=== PATIENT | female | born 1985 | race Caucasian/White ===

== ENCOUNTER → 2019-10-30 10:30 | Outpatient (BNVA) | payer BC, SELFPAY | PROVIDERS: Family Provider Family Medicine; PCP Family Medicine; Visit Provider Obstetrics & Gynecology | DX: R30.0 Dysuria (principal) | CPT/HCPCS: 80053; 87077; 87086; 87186 ==

== ENCOUNTER 2020-06-04 14:28 | Outpatient (CLI) | payer OTHER, SELFPAY ==
--- NOTE | 2020-06-04 14:37 | XRR_ITS ---
PROCEDURE INFORMATION: Exam: XR Left Knee Exam date and time: 06/04/2020 2:49 PM Age: 34 years old Clinical indication: Left; Prior surgery; Surgery type: Acl; Patient HX: Lt knee pain after doing squats; Additional info: L knee pain TECHNIQUE: Imaging protocol: XR Left knee. Views: 3 views. COMPARISON: No relevant prior studies available. FINDINGS: Bones/joints: Normal. Soft tissues: Normal. XR/XR knee LT 3V* [id number] IMPRESSION: No acute findings.
== END 2020-06-04 14:29 | disposition home or self-care (01) ==
LOC: RAD 14:35
PROVIDERS: Family Provider Family Medicine; PCP Family Medicine; Visit Provider Family Medicine
DX: M25.562 Pain in left knee (principal)
CPT/HCPCS: 73562

== ENCOUNTER → 2021-04-01 16:06 | Outpatient (BNVA) | payer OTHER, BC, SELFPAY | PROVIDERS: Family Provider Family Medicine; PCP Family Medicine; Visit Provider Nurse Practitioner Women's Health | DX: Z01.419 Encounter for gynecological examination (general) (routine) without abnormal findings (principal) | CPT/HCPCS: 87624 ==

== ENCOUNTER 2021-06-02 13:14 | Outpatient (CLI) | payer OTHER, BC, SELFPAY ==
[2021-06-02 13:20] VITALS: BP 125/85; PULSE 99; RESP 17; TEMP 36.6; O2SAT 99
[2021-06-02 13:45] VITALS: BMI 32.4
[2021-06-02 14:18] VITALS: BP 113/81; PULSE 74; RESP 20; TEMP 36.7; O2SAT 97
[2021-06-02 15:18] VITALS: BP 139/90; PULSE 85; RESP 18; TEMP 36.2; O2SAT 98
== END 2021-06-02 13:15 | disposition home or self-care (01) ==
LOC: OPS 13:17
PROVIDERS: PCP Family Medicine; Visit Provider Internal Medicine
DX: U07.1 COVID-19 (principal)
CPT/HCPCS: 96365

== ENCOUNTER 2022-08-29 09:09 | Outpatient (CLI) | payer BC, SELFPAY ==
[2022-08-29 09:46] LABS: Specific Gravity, Urine 1.005 (1.005-1.030); Urine Appearance Hazy (CLEAR); Urine Color Yellow (Yellow); pH Urine 6.5 (5-7)
[2022-08-29 09:47] LABS: Blood Urine Neg (Negative); Glucose Urine UA Norm (Normal); Ketones Urine Negative (Negative); Protein Urine Neg (Negative)
[2022-08-29 09:48] LABS: Bilirubin Urine 1+ (Negative); Leukocyte Esterase Urine Negative (Negative); Urobilinogen Urine 1 mg/dL (Negative)
[2022-08-29 09:49] LABS: Add Urine Microscopic? YES; Bacteria Urine 1+ /hpf; Mucus Urine TRACE /hpf; RBC Urine 0-4 /hpf (0-2); Squamous Epithelial Cell Urine 25-40 /hpf (0-5)
[2022-08-29 09:50] LABS: Add Urine Culture? No; Other Casts Urine WBC CAST /lpf
== END 2022-08-29 09:10 | disposition home or self-care (01) ==
PROVIDERS: PCP Family Medicine; Visit Provider Family Medicine
DX: R30.0 Dysuria (principal)
CPT/HCPCS: 81001; 87086

== ENCOUNTER → 2023-02-09 14:39 | Outpatient (BNVA) | payer BC, SELFPAY | PROVIDERS: PCP Family Medicine; Visit Provider Family Medicine | DX: R30.0 Dysuria (principal); Z34.90 Encounter for supervision of normal pregnancy, unspecified, unspecified trimester; I10 Essential (primary) hypertension | CPT/HCPCS: 80307; 81000; 81025; 84144; 84156; 84443; 84702; 85025; 86592; 86762; 86803; 86850; 86900; 87086; 87340; 87491; 87591; 87624; 87806 ==

== ENCOUNTER → 2023-02-12 10:40 | Outpatient (BNVA) | payer BC, SELFPAY | PROVIDERS: PCP Family Medicine; Visit Provider Family Medicine | DX: I10 Essential (primary) hypertension (principal); Z34.00 Encounter for supervision of normal first pregnancy, unspecified trimester | CPT/HCPCS: 84156 ==

== ENCOUNTER 2023-02-17 17:48 | Outpatient (CLI) | payer BC, SELFPAY ==
[2023-02-17 18:02] LABS: Add Urine Microscopic? NO; Charge for UA Resulting for Rev
[2023-02-17 18:09] LABS: Bilirubin Urine Neg (Negative); Blood Urine Neg (Negative); Glucose Urine UA Norm (Normal); Ketones Urine Negative (Negative); Leukocyte Esterase Urine Negative (Negative); Nitrate Urine Negative (Negative); Protein Urine Neg (Negative); Specific Gravity, Urine 1.015 (1.005-1.030); Urine Appearance Clear (CLEAR); Urine Color Yellow (Yellow); Urobilinogen Urine Norm (Negative); pH Urine 7 (5-7)
== END 2023-02-17 17:49 | disposition home or self-care (01) ==
LOC: LAB 17:49
PROVIDERS: PCP Family Medicine; Visit Provider Family Medicine
DX: R30.0 Dysuria (principal)
CPT/HCPCS: 81003; 87086

== ENCOUNTER 2023-02-19 15:22 | Outpatient (CLI) | payer BC, SELFPAY ==
--- NOTE | 2023-02-19 15:45 | US_ITS ---
WS: [id number] EARLY OBSTETRICAL ULTRASOUND (<14 WEEKS). HISTORY: Dating US - 1-2 weeks from now COMPARISON: None available. Single intrauterine gestational sac is identified. Cardiac activity at 185 BPM. [place]-rump length karina sures 2.0 cm which corresponds to a gestation of 8w4d. Normal-appearing yolk sac and amnion demonstra jose. No subchorionic hemorrhage. No free fluid. Complex nabothian cyst at the cervix. Normal size ovaries with no mass. There is a large hypoechoic mass inseparable from the LEFT lateral uterus. This mass does appear sepa rate from the ovary. This mass is round and hypoechoic with mild increased vascularity. There is only a small amount of shadowing present. Mass measures 7.6 x 7.0 x 8.3 cm. Probably representing a fibro id. No prior imaging studies to confirm this finding. This mass is displacing the gestational sac to the RIGHT. IMPRESSION: 1. Single intrauterine gestation of 8 weeks 4 days with an EDC of 2. Normal heart rate. 3. Solid mass in the LEFT adnexa inseparable from the uterus. Mass measures 7.6 x 7.0 x 8.3 cm and d isplaced the uterus and gestational sac to the RIGHT of midline. This is probably a fibroid. This adalgisa l need to be further evaluated to ensure no continued enlargement during and does not imped e with the growth of the fetus
== END 2023-02-19 15:23 | disposition home or self-care (01) ==
PROVIDERS: PCP Family Medicine; Visit Provider Family Medicine
DX: Z34.91 Encounter for supervision of normal pregnancy, unspecified, first trimester (principal); Z3A.08 8 weeks gestation of pregnancy
CPT/HCPCS: 76801; 76817

== ENCOUNTER 2023-03-15 17:31 | Outpatient (CLI) | payer BC, SELFPAY ==
[2023-03-15 18:47] LABS: Progesterone 10.71 ng/mL
== END 2023-03-15 17:32 | disposition home or self-care (01) ==
PROVIDERS: PCP Family Medicine; Visit Provider Family Medicine
DX: N93.9 Abnormal uterine and vaginal bleeding, unspecified (principal); Z34.00 Encounter for supervision of normal first pregnancy, unspecified trimester
CPT/HCPCS: 36415; 84144; 84702

== ENCOUNTER 2023-03-16 10:09 | Outpatient (CLI) | payer BC, SELFPAY ==
--- NOTE | 2023-03-16 10:45 | US_ITS ---
WS: [id number] EARLY OBSTETRICAL ULTRASOUND (<14 WEEKS). HISTORY: Absent FHT's with vaginal bleeding COMPARISON: 02/19/2023 Single intrauterine gestational sac is identified. [place]-rump length measures 1.9 cm which correspond s to a gestation of 8 weeks and 4 days. There has been no increase in size of the embryo since the pr ior study of 02/19/2023. No cardiac activity is identified on today's examination. The gestational sac is slightly elongated and extending towards the cervical canal. Again noted is the large mass in the LEFT pelvis distorting the gestational sac. Mass measures 5.7 x 5.5 and most consistent with a fibroid. IMPRESSION: 1. Embryonic demise. No cardiac activity identified. 2. No embryonic growth since 02/19/2023. Estimated age 8 weeks and 4 days. 3. Patient has a known large fibroid which is distorting the gestational sac. Notified Gómez Dixon MD at 03/16/2023 11:14 AM. Notified by freight representative at the time of exam.
== END 2023-03-16 10:10 | disposition home or self-care (01) ==
PROVIDERS: PCP Family Medicine; Visit Provider Family Medicine
DX: O02.1 Missed abortion (principal); O34.11 Maternal care for benign tumor of corpus uteri, first trimester; D25.9 Leiomyoma of uterus, unspecified; Z3A.08 8 weeks gestation of pregnancy
CPT/HCPCS: 76801; 76817

== ENCOUNTER 2023-03-25 16:38 | Emergency (ER) | payer BC, SELFPAY ==
[2023-03-25 16:41] VITALS: BP 148/98; PULSE 82; RESP 17; TEMP 36.7; O2SAT 100
[2023-03-25 17:26] LABS: Basophils % 0.4 %; Eosinophils # 0.1 10^3/uL (0.0-0.8); Eosinophils % 0.7 %; Hematocrit 35.1 % (36-47); Lymphocytes # 2.5 10^3/uL (0.8-4.8); Lymphocytes % 33.5 %; Mean Corpuscular HGB Conc 33.3 g/dL (30-55); Mean Corpuscular Hemoglobin 29.8 pg (27-33); Mean Corpuscular Volume 89.5 fl (85-98); Monocytes # 0.4 10^3/uL (0.2-0.9); Neutrophils # 4.46 10^3/uL (1.8-7.7); Neutrophils % 59.7 %; Nucleated Red Blood Cells % 0 %; Platelet Count 339 10^3/cmm (157-399); Red Blood Count 3.92 10^6/uL (3.85-5.65); Red Cell Distribution Width 14.5 % (12.1-15.1); White Blood Count 7.46 10^3/uL (3.29-11.43)
--- NOTE | 2023-03-25 17:37 | USR_ITS ---
PROCEDURE INFORMATION: Exam: US First Trimester, Transabdominal and US , Transvaginal Exam date and time: 03/25/2023 6:08 PM Age: 37 years old Clinical indication: Lmp or gestational age (in weeks): 13w 4d; Antepartum complications; Bleeding; ; Patient HX: one, para zero presenting with heavy vaginal bleed x 6 days, positive serum hcg is low for gestational age. She states that her ob physician had diagnosed her with one fibroid. I am seeing 3 today, one of which is pedunculated. ; Additional info: Miscarriage TECHNIQUE: Imaging protocol: Real-time transabdominal obstetrical ultrasound of the maternal pelvis and a first trimester , less than 14 weeks 0 days, with image documentation. Transvaginal imaging was used for better evaluation of the fetus, adnexa, and/or cervix. COMPARISON: US OB <=14 wk fetus w transvag 03/16/2023 10:46 AM FINDINGS: Gestation: No intrauterine identified. Uterus: Uterus measures 10.3 x 8.9 x 6.5 cm. There is a 5.6 x 3.8 cm intramural fibroid, and 8.1 x 2.9 x 1.8 intramural fibroid and a 4.4 x 4.0 x 3.5 cm pedunculated fibroid. The endometrium measures 8 mm thickness. Cervix: Unremarkable. Right ovary/adnexa: Right ovary measures 2.8 x 2.4 x 1.8 cm with a volume of 6.5 mL. The left ovary measures 2.8 x 2.7 x 2.0 cm with a volume 8.0 mL. Left ovary/adnexa: See Right ovary/adnexa finding. Intraperitoneal space: No free fluid in the pelvis. US/US OB <= 14 weeks fetus [id number] IMPRESSION: 1. No intrauterine identified. 2. The presence or absence of retained products of conception can not be determined.
[2023-03-25 17:54] LABS: Alanine Aminotransferase 23 U/L (0-33); Albumin Level 4.5 g/dL (3.5-5.2); Alkaline Phosphatase 80 U/L (35-105); Anion Gap 14.2 (5-19); Aspartate Amino Transferase 27 U/L (0-32); Blood Urea Nitrogen 11 mg/dL (6-20); Calcium 9.3 mg/dL (8.5-10.5); Carbon Dioxide 25 mmol/L (22-29); Chloride 105 mmol/L (98-107); Creatinine Clr Calc Pharmacy 145.6475; Globulin 2.8 g/dL (1.3-4.6); Glomerular Filtration Rate 112.5 mL/min (90-130); Glucose 86 mg/dL (65-115); Osmolality Calculated 289 mOsm/kg (285-295); Potassium 4.2 mmol/L (3.5-5.1); Sodium 140 mmol/L (136-145); Total Bilirubin 0.3 mg/dL (0.15-1.2); Total Protein 7.3 g/dL (6.6-8.7)
[2023-03-25 17:59] VITALS: BP 133/93; PULSE 73; RESP 18; O2SAT 100
--- NOTE | 2023-03-25 18:11 | W.ED.PREGNAN ---
HPI - General: Chief complaint: OB/Uterine Contractions Stated complaint: Destiny sent for incomplete miscarriage Time Seen by Provider: 03/25/23 17:07 Source: patient Mode of arrival: ambulatory Limitations: no limitations History of Present Illness: 37-year-old female states she is 12 weeks states she had a miscarriage on Wednesday states today she had some increased bleeding with cramping. She denies any massive bleeding or lightheadedness. She has had some slight abdominal cramping. Associated symptoms: Deny abdominal pain, headache(s), nausea or vomiting Review of Systems Const: Denies: fever(s), chills, body aches or change in appetite ENMT: Denies: throat pain or dental pain Card: Denies: chest pain Resp: Denies: dyspnea GI: Denies: abdominal pain, nausea, vomiting or diarrhea : Reports: vaginal bleeding Musc: Denies: neck pain or back pain Skin/Breast: Denies: rash Neuro: Denies: headache(s) PFSH ED PFSH: Medical History Chronic GERD Hypertension No pertinent past medical history neghx: dm,thyroid,dvt/pe PCP: Dr. Dxion Surgical History Hx of cholecystectomy (~2005) Hx of removal of cyst (~2011) L of top of foot Hx of total knee arthroplasty L knee x2 06/2020 Family History Father Hypertension Heart disease Diabetes Mother Hypertension Diabetes Brother Hypertension Grandfather Heart disease Maternal Family/Other Diabetes Paternal Aunt Sister Thyroid disease Denies family history of Colon cancer Ovarian cancer Hypercholesteremia Breast cancer Uterine cancer Stroke Social History Smoking and tobacco/nicotine status: never used tobacco/nicotine Alcohol intake: never Substance/Drug Use: never Current occupation: [employer] Physical Exam Const: COMMON NORMALS: no acute distress, patient oriented x3 and healthy appearing HENMT: COMMON NORMALS: normocephalic and atraumatic HEAD & SCALP: normocephalic and atraumatic Eye: COMMON NORMALS: Equal, round and reactive pupils present and EOMs intact bilaterally PUPIL: Yes Equal, round and reactive pupils present Neck/C-Spine: COMMON NORMALS: full ROM Chest: COMMONS NORMALS: normal inspection of the chest Resp: COMMON NORMALS: normal respiratory effort Cardio: COMMON NORMALS: regular rate, regular rhythm and No murmurs present (Cardio) RATE: regular rate RHYTHM: regular rhythm GI: INSPECTION: Yes normal to inspection Extremity: COMMON NORMALS: normal to inspection and full ROM Neuro: COMMON NORMALS: patient oriented x3, moves all extremities and no focal motor deficits Psych: COMMON NORMALS: mental status grossly normal, Normal thought process present and cooperative THOUGHT PROCESS: Normal thought process present Skin: COMMON NORMALS: no rashes or lesions noted and no wounds GENERAL SKIN EXAM: no rashes or lesions noted Course Vital Signs: Vital signs: Vital Signs Temperature 98.1 F 03/25/23 16:41 Pulse Rate 76 03/25/23 18:54 Respiratory Rate 18 03/25/23 18:54 Blood Pressure 149/100 03/25/23 18:54 Pulse Oximetry 99 03/25/23 18:54 Oxygen Delivery Me thod Room Air 03/25/23 18:54 MDM - OB/Uterine Contractions Medical Decision Making Patient presents here with miscarriage patient was seen by Dr. Tavarez in the ER he did a pelvic exam he states he had evacuated clots or bleeding and stopped he is comfortable with her going home and following up with him outpatient she does feel improved here as well hemoglobin is normal I did inform her if her bleeding worsens she is to return she understands agrees to plan. Medical Records I reviewed the patient's medical records. Lab Data I reviewed the patient's lab results. 03/25/23 17:18 03/25/23 17:18 Laboratory Results WBC 7.46 10^3/uL (3.29-11.43) 03/25/23 17:18 RBC 3.92 10^6/uL (3.85-5.65) 03/25/23 17:18 Hgb 11.70 g/dL (11.27-16.99) 03/25/23 17:18 Hct 35.1 % (36-47) L 03/25/23 17:18 MCV 89.5 fl (85-98) 03/25/23 17:18 MCH 29.8 pg (27-33) 03/25/23 17:18 MCHC 33.3 g/dL (30-55) 03/25/23 17:18 RDW 14.5 % (12.1-15.1) 03/25/23 17:18 Plt Count 339 10^3/cmm (157-399) 03/25/23 17:18 MPV 10.0 fL (7.4-10.4) 03/25/23 17:18 Neut % (Auto) 59.7 % 03/25/23 17:18 Lymph % (Auto) 33.5 % 03/25/23 17:18 [place] % (Auto) 5.0 % 03/25/23 17:18 Eos % (Auto) 0.7 % 03/25/23 17:18 Baso % (Auto) 0.4 % 03/25/23 17:18 Neut # (Auto) 4.46 10^3/uL (1.8-7.7) 03/25/23 17:18 Lymph # (Auto) 2.5 10^3/uL (0.8-4.8) 03/25/23 17:18 [place] # (Auto) 0.4 10^3/uL (0.2-0.9) 03/25/23 17:18 Eos # (Auto) 0.1 10^3/uL (0.0-0.8) 03/25/23 17:18 Baso # (Auto) 0.0 10^3/uL (0.0-0.1) 03/25/23 17:18 Nucleated RBC % (auto) 0 % 03/25/23 17:18 Nucleated RBCs # 0.0 /100WBC 03/25/23 17:18 Sodium 140 mmol/L (136-145) 03/25/23 17:18 Potassium 4.2 mmol/L (3.5-5.1) 03/25/23 17:18 Chloride 105 mmol/L (98-107) 03/25/23 17:18 Carbon Dioxide 25 mmol/L (22-29) 03/25/23 17:18 Anion Gap 14.2 (5-19) 03/25/23 17:18 BUN 11 mg/dL (6-20) 03/25/23 17:18 Creatinine 0.6 mg/dL (0.5-0.9) 03/25/23 17:18 GFR Calculation 112.5 mL/min (90-130) 03/25/23 17:18 Glucose 86 mg/dL (65-115) 03/25/23 17:18 Calculated Osmolality 289 mOsm/kg (285-295) 03/25/23 17:18 Calcium 9.3 mg/dL (8.5-10.5) 03/25/23 17:18 Total Bilirubin 0.3 mg/dL (0.15-1.2) 03/25/23 17:18 AST 27 U/L (0-32) 03/25/23 17:18 ALT 23 U/L (0-33) 03/25/23 17:18 Alkaline Phosphatase 80 U/L (35-105) 03/25/23 17:18 Total Protein 7.3 g/dL (6.6-8.7) 03/25/23 17:18 Albumin 4.5 g/dL (3.5-5.2) 03/25/23 17:18 Globulin 2.8 g/dL (1.3-4.6) 03/25/23 17:18 Ser , Semi-Qnt 550.60 mIU/mL 03/25/23 17:18 All radiology interpretation(s) finalized by discharge Discharge Plan Discharge Patient Disposition: Home Clinical Impression: Spontaneous miscarriage Condition: Stable Prescriptions: No Action cholecalciferol (vitamin D3) 25 mcg (1,000 unit) capsule 50 mcg PO DAILY ascorbic acid (vitamin C) 1,000 mg tablet 500 mg PO BID prenat.vits,bjorn,hbo-otqq-oeovv Tablet 1 tab PO DAILY doxylamine succinate 25 mg tablet See Rx Instructions .Route .COMPLEX PRN (Reason: allergy symptoms) Qty: 30 6RF Rx Instructions: Take 1 tab by mouth each evening and 1/2 tab in the am as needed for nausea PRN; pyridoxine (vitamin B6) 100 mg tablet 100 mg PO BID PRN (Reason: Nausea) Qty: 60 3RF labetalol 100 mg tablet See Rx Instructions .ROUTE .COMPLEX Qty: 180 1RF Dose Instruction: TAKE 1 TABLET BY MOUTH TWICE A DAY Rx Instructions: TAKE 1 TABLET BY MOUTH TWICE A DAY Discharge Orders: Discharge ED (Routine); Ordered 03/25/23 Ordered By: Yarelis Olivier Referrals: Miguel Angel Tavarez MD [Physician] - 1-3 days Gómez Dixon MD [Primary Care Provider] - 1-3 days Discharge Diet: Advance as tolerated Discharge Activity: Resume usual activity Patient Instructions: Miscarriage (ED) Coding Level of Care Code ED Ambulance Paramedic for Nikolai Brown
[2023-03-25] MEDS: morphine 4 mg/mL SDV 1 mL 2 MG IVP (18:45)
[2023-03-25] MEDS: ondansetron 2 mg/ML SDV 2 mL 4 MG IVP (18:45)
[2023-03-25] MEDS: miSOPROStol 200 mcg Tablet 800 MCG PR (18:46)
[2023-03-25 18:54] VITALS: BP 149/100; PULSE 76; RESP 18; O2SAT 99
[2023-03-26 01:20] VITALS: BP 149/100; PULSE 76; RESP 18; TEMP 36.7; O2SAT 99
== END 2023-03-25 19:46 | disposition home or self-care (01) ==
PROVIDERS: Family Medicine; Emergency Provider Emergency Medicine; PCP Family Medicine
DX: O03.9 Complete or unspecified spontaneous abortion without complication (principal); O16.1 Unspecified maternal hypertension, first trimester; Z3A.12 12 weeks gestation of pregnancy
CPT/HCPCS: 36415; 76801; 80053; 84702; 85025; 96374; 96375; 99284; J2270; J2405

== ENCOUNTER → 2023-03-31 13:30 | Outpatient (BNVA) | payer BC, SELFPAY | PROVIDERS: PCP Family Medicine; Visit Provider Nurse Practitioner Women's Health | DX: O03.4 Incomplete spontaneous abortion without complication (principal); R10.2 Pelvic and perineal pain | CPT/HCPCS: 84702; 87086 ==

== ENCOUNTER → 2023-04-09 12:03 | Outpatient (BNVA) | payer BC, SELFPAY | PROVIDERS: PCP Family Medicine; Visit Provider Family Medicine | DX: Z11.9 Encounter for screening for infectious and parasitic diseases, unspecified (principal); E03.8 Other specified hypothyroidism; R53.83 Other fatigue; O03.4 Incomplete spontaneous abortion without complication; E10.9 Type 1 diabetes mellitus without complications | CPT/HCPCS: 80053; 82306; 83036; 83520; 84439; 84702; 85025; 86787 ==

== ENCOUNTER → 2023-04-21 07:51 | Outpatient (BNVA) | payer BC, SELFPAY | PROVIDERS: PCP Family Medicine; Visit Provider Nurse Practitioner Women's Health | DX: O03.4 Incomplete spontaneous abortion without complication (principal); O34.10 Maternal care for benign tumor of corpus uteri, unspecified trimester; Z3A.00 Weeks of gestation of pregnancy not specified | CPT/HCPCS: 76830; 84702; 85025 ==

== ENCOUNTER 2023-04-26 17:38 | Outpatient (CLI) | payer BC, SELFPAY ==
[2023-04-29 08:45] LABS: Thyroid Peroxidase Antobodies 1 IU/mL (<9)
[2023-04-29 22:30] LABS: PTT-LA-Screen 37 sec (< OR = 40)
[2023-04-30 02:24] LABS: CARDIOLIPIN AB (IGA) <2.0 APL-U/mL; CARDIOLIPIN AB (IGG) <2.0 GPL-U/mL; CARDIOLIPIN AB (IGM) <2.0 MPL-U/mL
[2023-05-01 04:51] LABS: Beta 2 Glycoprotein IGA <2.0 U/mL (<20.0); Beta 2 Glycoprotein IGG <2.0 U/mL (<20.0); Beta 2 Glycoprotein IGM <2.0 U/mL (<20.0)
== END 2023-04-26 17:39 | disposition home or self-care (01) ==
PROVIDERS: PCP Family Medicine; Visit Provider Obstetrics & Gynecology Reproductive Endocrinology
DX: Z01.89 Encounter for other specified special examinations (principal)
CPT/HCPCS: 85613; 85730; 86146; 86147; 86376; 88262

== ENCOUNTER 2023-05-04 17:22 | Outpatient (CLI) | payer BC, SELFPAY ==
[2023-05-04 18:12] LABS: Estradiol 156.4 pg/mL; Follicle Stimulating Hormone 3.8 mIU/mL; HCG Quantitative 25.26 mIU/mL; Luteinizing Hormone 3.9 mIU/mL (0.5-41.7); Progesterone 0.171 ng/mL
== END 2023-05-04 17:23 | disposition home or self-care (01) ==
PROVIDERS: PCP Family Medicine; Visit Provider Family Medicine
DX: O03.4 Incomplete spontaneous abortion without complication (principal); R10.2 Pelvic and perineal pain
CPT/HCPCS: 82670; 83001; 83002; 84144; 84702

== ENCOUNTER → 2023-05-13 08:10 | Outpatient (BNVA) | payer BC, SELFPAY | PROVIDERS: PCP Family Medicine; Visit Provider Family Medicine | DX: R30.0 Dysuria (principal) | CPT/HCPCS: 87086 ==

== ENCOUNTER → 2023-06-02 11:53 | Outpatient (BNVA) | payer BC, SELFPAY | PROVIDERS: PCP Family Medicine; Visit Provider Family Medicine | DX: Z32.00 Encounter for pregnancy test, result unknown (principal) | CPT/HCPCS: 84702 ==

== ENCOUNTER → 2023-07-20 11:50 | Outpatient (BNVA) | payer BC, SELFPAY | PROVIDERS: PCP Family Medicine; Visit Provider Family Medicine | DX: Z34.90 Encounter for supervision of normal pregnancy, unspecified, unspecified trimester (principal) | CPT/HCPCS: 84144; 84702 ==

== ENCOUNTER → 2023-07-22 12:02 | Outpatient (BNVA) | payer BC, SELFPAY | PROVIDERS: PCP Family Medicine; Visit Provider Family Medicine | DX: Z34.90 Encounter for supervision of normal pregnancy, unspecified, unspecified trimester (principal) | CPT/HCPCS: 84144; 84702 ==

== ENCOUNTER → 2023-07-26 11:49 | Outpatient (BNVA) | payer BC, SELFPAY | PROVIDERS: PCP Family Medicine; Visit Provider Family Medicine | DX: Z34.00 Encounter for supervision of normal first pregnancy, unspecified trimester (principal) | CPT/HCPCS: 84144; 84702 ==

== ENCOUNTER 2023-08-02 15:36 | Outpatient (CLI) | payer BC, SELFPAY ==
--- NOTE | 2023-08-02 15:45 | US_ITS ---
WS: [id number] EARLY OBSTETRICAL ULTRASOUND (<14 WEEKS). HISTORY: Dating US - This week if possible COMPARISON: None available. Single intrauterine gestational sac is identified. Cardiac activity at 131 BPM. [place]-rump length karina sures 1.0 cm which corresponds to a gestation of 7w1d. Normal-appearing yolk sac and amnion demonstra jose. No subchorionic hemorrhage. No free fluid. RIGHT ovarian corpus luteum. Very large mass identified within the LEFT uterus consistent with the known uterine leiomyoma which h as been previously described. This fibroid measures 7.3 x 7.2 x 6.8 cm. Fibroid is displacing the josie tral uterus to the RIGHT but not significantly distorting the gestational sac at this time. IMPRESSION: 1. Single intrauterine gestation of 7w1d with an EDC of 03/19/2024. 2. Normal cardiac activity. 3. Large LEFT uterine fibroid 7.3 x 7.2 x 6.8 cm.
== END 2023-08-02 15:37 | disposition home or self-care (01) ==
LOC: RAD 15:36
PROVIDERS: PCP Family Medicine; Visit Provider Family Medicine
DX: Z36.87 Encounter for antenatal screening for uncertain dates (principal); O34.11 Maternal care for benign tumor of corpus uteri, first trimester; Z3A.01 Less than 8 weeks gestation of pregnancy
CPT/HCPCS: 76801; 76817

== ENCOUNTER → 2023-08-03 14:54 | Outpatient (BNVA) | payer BC, SELFPAY | PROVIDERS: PCP Family Medicine; Visit Provider Family Medicine | DX: I10 Essential (primary) hypertension (principal); R53.83 Other fatigue; Z34.90 Encounter for supervision of normal pregnancy, unspecified, unspecified trimester | CPT/HCPCS: 80307; 81000; 81025; 84144; 84443; 84702; 85025; 86592; 86705; 86706; 86762; 86850; 86900; 87086; 87340; 87389; 87491; 87591 ==

== ENCOUNTER → 2023-08-17 11:51 | Outpatient (BNVA) | payer BC, SELFPAY | PROVIDERS: PCP Family Medicine; Visit Provider Family Medicine | DX: O20.9 Hemorrhage in early pregnancy, unspecified (principal); Z34.00 Encounter for supervision of normal first pregnancy, unspecified trimester | CPT/HCPCS: 84144; 84702 ==

== ENCOUNTER → 2023-08-19 15:54 | Outpatient (BNVA) | payer BC, SELFPAY | PROVIDERS: PCP Family Medicine; Visit Provider Family Medicine | DX: R30.0 Dysuria (principal) | CPT/HCPCS: 81000; 84702 ==

== ENCOUNTER 2023-08-21 09:17 | Outpatient (CLI) | payer BC, SELFPAY ==
[2023-08-21 09:56] LABS: Urine Total Protein 10.2 mg/dL (0-150)
[2023-08-21 09:57] LABS: Total Volume, Urine 1250 mL; Urine Total Protein 24 Hour 127.5 mg/24hr (0-150)
== END 2023-08-21 09:18 | disposition home or self-care (01) ==
PROVIDERS: PCP Family Medicine; Visit Provider Family Medicine
DX: I10 Essential (primary) hypertension (principal); Z34.00 Encounter for supervision of normal first pregnancy, unspecified trimester
CPT/HCPCS: 84156

== ENCOUNTER 2023-08-27 15:27 | Emergency (ER) | payer BC, SELFPAY ==
[2023-08-27 15:34] VITALS: BP 145/44; PULSE 97; RESP 18; TEMP 36.6; O2SAT 98; BMI 32.9
--- NOTE | 2023-08-27 15:56 | ED_ITS ---
HPI - Nausea/Vomiting/Diarrhea 2 General: Chief complaint: Nausea/Vomiting/Diarrhea Stated complaint: 11 weeks preg, sent by dr larose Time Seen by Provider: 08/27/23 15:53 History of Present Illness: 37-year-old female who presents to the e mergency room with nausea and vomiting. She is approximately 11 weeks . She says she has had a lot of issues with vomiting this . She has been in and receive fluids. She says she was feeling worse today. She also says she has had some dysuria. No focal abdominal pain. No vaginal bleeding. No cramping. Review of Systems 2 Narrative: Constitutional symptoms: Negative except as documented in HPI. Skin symptoms: Negative except as documented in HPI. Eye symptoms: Negative except as documented in HPI. ENMT symptoms: Negative except as documented in HPI. Respiratory symptoms: Negative except as documented in HPI. Cardiovascular symptoms: Negative except as documented in HPI. Gastrointestinal symptoms: Negative except as documented in HPI. Genitourinary symptoms: Negative except as documented in HPI. Musculoskeletal symptoms: Negative except as documented in HPI. Neurologic symptoms: Negative except as documented in HPI. Psychiatric symptoms: Negative except as documented in HPI. Endocrine symptoms: Negative except as documented in HPI. PFSH ED 2 PFSH: Medical History (Updated 08/27/23 @ 17:41 by Emmy Coleman MD) Chronic GERD Hypertension No pertinent past medical history neghx: dm,thyroid,dvt/pe PCP: Dr. Larose Surgical History (Updated 08/03/23 @ 15:04 by Gómez Larose MD) History of dilation and curettage 04/2023 Hx of cholecystectomy (~2005) Hx of removal of cyst (~2011) L of top of foot Hx of total knee arthroplasty L knee x2 06/2020 Family History Father Hypertension Heart disease Diabetes Mother Hypertension Diabetes Brother Hypertension Grandfather Heart disease Maternal Family/Other Diabetes Paternal Aunt Sister Thyroid disease Denies family history of Colon cancer Ovarian cancer Hypercholesteremia Breast cancer Uterine cancer Stroke Social History Smoking and tobacco/nicotine status: never used tobacco/nicotine Alcohol intake: never Substance/Drug Use: never Current occupation: [employer] Home Physical Exam 2 Narrative: EXAM NARRATIVE: General: Alert, no acute distress. Skin: Warm, dry. Head: Normocephalic, atraumatic. Neck: Supple, trachea midline. Eye: Extraocular movements are intact. Ears, nose, mouth and throat: Tacky oral mucosa. Cardiovascular: Regular, Normal peripheral perfusion. Respiratory: Lungs are clear to auscultation, respirations are non-labored, breath sounds are equal, Symmetrical chest wall expansion. Gastrointestinal: Soft, Nontender, Non distended, Normal bowel sounds. Musculoskeletal: Normal ROM, no deformity. Neurological: Alert and oriented, No focal neurological deficit observed. Psychiatric: Cooperative, appropriate mood & affect. Course 2 Vital Signs: Vital signs: Vital Signs Temperature 97.9 F 08/27/23 15:34 Pulse Rate 75 08/27/23 17:43 Respiratory Rate 16 08/27/23 17:43 Blood Pressure 125/87 08/27/23 17:43 Pulse Oximetry 100 08/27/23 17:43 Oxygen Delivery Me thod Room Air 08/27/23 17:43 MDM - Nausea/Vomiting/Diarrhea Medical Decision Making Medical decision making: Differential diagnosis including but not limited to and based on the above HPI, review of systems and physical exam: Patient has had hyperemesis gravidarum. Would have concern for dehydration and renal failure. Also with her worsening symptoms and with some dysuria would worry about a urinary tract infection. CBC, BMP and urinalysis were ordered. Orders placed to evaluate differential diagnosis based on the above differential, HPI and physical exam Lab Review: Laboratory results were reviewed and interpreted by myself the emergency room physician. No leukocytosis. White count is 13.3. BUN and creatinine are 10 and 0.5. Urine is concentrated. And does appear to have some signs of infection. Reexamination: Patient says she feels quite a bit better after fluids and antiemetics. No increased work of breathing. No altered mental status. She has had no nausea or vomiting here. We discussed medications and the risks of Zofran versus frequent hydration. We are going to try to get her some Diclegis. But I did write some Zofran in case she needs it Lab Data 08/27/23 16:08 08/27/23 16:08 Laboratory Results WBC 8.88 10^3/uL (3.29-11.43) 08/27/23 16:08 RBC 4.74 10^6/uL (3.85-5.65) 08/27/23 16:08 Hgb 13.30 g/dL (11.27-16.99) 08/27/23 16:08 Hct 40.7 % (36-47) 08/27/23 16:08 MCV 85.9 fl (85-98) 08/27/23 16:08 MCH 28.1 pg (27-33) 08/27/23 16:08 MCHC 32.7 g/dL (30-55) 08/27/23 16:08 RDW 17.0 % (12.1-15.1) H 08/27/23 16:08 Plt Count 301 10^3/cmm (157-399) 08/27/23 16:08 MPV 11.9 fL (7.4-10.4) H 08/27/23 16:08 Neut % (Auto) 67.4 % 08/27/23 16:08 Lymph % (Auto) 25.1 % 08/27/23 16:08 [place] % (Auto) 6.8 % 08/27/23 16:08 Eos % (Auto) 0.2 % 08/27/23 16:08 Baso % (Auto) 0.2 % 08/27/23 16:08 Neut # (Auto) 5.98 10^3/uL (1.8-7.7) 08/27/23 16:08 Lymph # (Auto) 2.2 10^3/uL (0.8-4.8) 08/27/23 16:08 [place] # (Auto) 0.6 10^3/uL (0.2-0.9) 08/27/23 16:08 Eos # (Auto) 0.0 10^3/uL (0.0-0.8) 08/27/23 16:08 Baso # (Auto) 0.0 10^3/uL (0.0-0.1) 08/27/23 16:08 Nucleated RBC % (auto) 0 % 08/27/23 16:08 Nucleated RBCs # 0.0 /100WBC 08/27/23 16:08 Sodium 134 mmol/L (136-145) L 08/27/23 16:08 Potassium 4.0 mmol/L (3.5-5.1) 08/27/23 16:08 Chloride 100 mmol/L (98-107) 08/27/23 16:08 Carbon Dioxide 21 mmol/L (22-29) L 08/27/23 16:08 Anion Gap 17.0 (5-19) 08/27/23 16:08 BUN 10 mg/dL (6-20) 08/27/23 16:08 Creatinine 0.5 mg/dL (0.5-0.9) 08/27/23 16:08 GFR Calculation 138.8 mL/min (90-130) H 08/27/23 16:08 Glucose 89 mg/dL (65-115) 08/27/23 16:08 Calculated Osmolality 277 mOsm/kg (285-295) L 08/27/23 16:08 Calcium 9.5 mg/dL (8.5-10.5) 08/27/23 16:08 Total Bilirubin 0.4 mg/dL (0.15-1.2) 08/27/23 16:08 AST 21 U/L (0-32) 08/27/23 16:08 ALT 20 U/L (0-33) 08/27/23 16:08 Alkaline Phosphatase 75 U/L (35-105) 08/27/23 16:08 Total Protein 7.1 g/dL (6.6-8.7) 08/27/23 16:08 Albumin 4.2 g/dL (3.5-5.2) 08/27/23 16:08 Globulin 2.9 g/dL (1.3-4.6) 08/27/23 16:08 Ser , Semi-Qnt 647001.00 mIU/mL 08/27/23 16:08 Urine Color Yellow (Yellow) 08/27/23 16:08 Urine Appearance Clear (CLEAR) 08/27/23 16:08 Urine pH 5 (5-7) 08/27/23 16:08 Ur Specific [place] 1.030 (1.005-1.030) 08/27/23 16:08 Urine Protein Trace (Negative) 08/27/23 16:08 Urine Glucose (UA) Norm (Normal) 08/27/23 16:08 Urine Ketones 3+ (Negative) H 08/27/23 16:08 Urine Blood Neg (Negative) 08/27/23 16:08 Urine Nitrate Negative (Negative) 08/27/23 16:08 Urine Bilirubin Neg (Negative) 08/27/23 16:08 Urine Urobilinogen 1 mg/dL (Negative) H 08/27/23 16:08 Ur Leukocyte Esterase Negative (Negative) 08/27/23 16:08 Urine RBC Rare /hpf (0-2) 08/27/23 16:08 Urine WBC 0-4 /hpf (0-5) H 08/27/23 16:08 Ur Squamous Epith Cells 10-15 /hpf (0-5) H 08/27/23 16:08 Amorphous Sediment Not Reportable 08/27/23 16:08 Urine Bacteria 1+ /hpf (NONE) H 08/27/23 16:08 No radiology studies performed this visit Other Data Assessment and plan: Hyperemesis gravidarum Dehydration Urinary tract infection -1.5 L normal saline bolus, IV Zofran. Patient feels improved. Rocephin for UTI. - Discharged home - Discussed plan with patient. Answered any questions. - Evaluation and treatment of this problem were appropriate in the emergency setting. Discharge Plan Discharge Patient Disposition: Home Clinical Impression: Hyperemesis gravidarum, Dehydration, Urinary tract infection, 14 weeks gestation of Condition: Stable Prescriptions: New doxylamine-pyridoxine (vit B6) [Diclegis] 10-10 mg tablet,delayed release (DR/EC) 1 tab PO DAILY Qty: 60 0RF Rx Instructions: start 1 QHS. increase to 1 bid, then 2 qhs, 1 qam, then 2 bid if needed ondansetron 8 mg tablet,disintegrating 8 mg PO .q6 PRN (Reason: nausea and vomiting) Qty: 14 0RF cefdinir 300 mg capsule 300 mg PO BID 5 Days Qty: 10 0RF No Action cholecalciferol (vitamin D3) 25 mcg (1,000 unit) capsule 50 mcg PO DAILY ascorbic acid (vitamin C) 1,000 mg tablet 500 mg PO BID prenat.vits,bjorn,[id number] Tablet 1 tab PO DAILY pyridoxine (vitamin B6) 100 mg tablet 100 mg PO BID PRN (Reason: Nausea) Qty: 60 3RF labetalol 100 mg tablet See Rx Instructions .ROUTE .COMPLEX Dose Instruction: TAKE 1 TABLET BY MOUTH TWICE A DAY Rx Instructions: TAKE 1 TABLET BY MOUTH ONCE A DAY Vaginal progesterone suppository 90 mg vaginal DAILY Qty: 30 2RF Discharge Orders: Discharge ED (Routine); Ordered 08/27/23 Ordered By: Emmy Coleman Referrals: Gómez Larose MD [Primary Care Provider] - (You have been screened and evaluated and felt safe for discharge. Health conditions do change or evolve sometimes and as such it is important that you follow up with your Primary Doctor to be re checked, 3-5 days is a general good time frame for follow up. You are always welcome to return to the ED for re assessment if your symptoms are worsening or you have new concerns) Discharge Diet: Advance as tolerated Discharge Activity: Increase activity as tolerated Patient Instructions: Hyperemesis Gravidarum (ED), Urinary Tract Infection in (ED), Opioid Safety, Pain Management Coding Level of Care Code ED Tax Appraiser for Nikolai Brown
[2023-08-27] MEDS: sodium chloride 0.9% 1,000 ML 999 ML IV (16:05)
[2023-08-27] MEDS: ondansetron 2 mg/ML SDV 2 mL 4 MG IVP (16:13)
--- NOTE | 2023-08-27 16:21 | PC.NURSE ---
pt reports n/v with . reports burning with urination. intermittent cramping with urination. denies bleeding. abd soft/nontender. bowel sounds present
[2023-08-27 16:43] LABS: Basophils % 0.2 %; Eosinophils % 0.2 %; Hematocrit 40.7 % (36-47); Lymphocytes # 2.2 10^3/uL (0.8-4.8); Lymphocytes % 25.1 %; Mean Corpuscular HGB Conc 32.7 g/dL (30-55); Mean Corpuscular Hemoglobin 28.1 pg (27-33); Mean Corpuscular Volume 85.9 fl (85-98); Mean Platelet Volume 11.9 fL (7.4-10.4); Monocytes # 0.6 10^3/uL (0.2-0.9); Monocytes % 6.8 %; Neutrophils # 5.98 10^3/uL (1.8-7.7); Neutrophils % 67.4 %; Nucleated Red Blood Cells % 0 %; Platelet Count 301 10^3/cmm (157-399); Red Blood Count 4.74 10^6/uL (3.85-5.65); White Blood Count 8.88 10^3/uL (3.29-11.43)
[2023-08-27 17:00] LABS: Glucose Urine UA Norm (Normal); Protein Urine Trace (Negative); Urine Appearance Clear (CLEAR); Urine Color Yellow (Yellow); pH Urine 5 (5-7)
[2023-08-27 17:01] LABS: Bilirubin Urine Neg (Negative); Blood Urea Nitrogen 10 mg/dL (6-20); Blood Urine Neg (Negative); Carbon Dioxide 21 mmol/L (22-29); Chloride 100 mmol/L (98-107); Ketones Urine 3+ (Negative); Leukocyte Esterase Urine Negative (Negative); Nitrate Urine Negative (Negative); Sodium 134 mmol/L (136-145); Urobilinogen Urine 1 mg/dL (Negative)
[2023-08-27 17:02] LABS: Alanine Aminotransferase 20 U/L (0-33); Albumin Level 4.2 g/dL (3.5-5.2); Alkaline Phosphatase 75 U/L (35-105); Aspartate Amino Transferase 21 U/L (0-32); Calcium 9.5 mg/dL (8.5-10.5); Creatinine Clr Calc Pharmacy 176.5426; Globulin 2.9 g/dL (1.3-4.6); Glomerular Filtration Rate 138.8 mL/min (90-130); Glucose 89 mg/dL (65-115); Osmolality Calculated 277 mOsm/kg (285-295); Total Bilirubin 0.4 mg/dL (0.15-1.2); Total Protein 7.1 g/dL (6.6-8.7)
[2023-08-27 17:03] LABS: Add Urine Culture? No; Bacteria Urine 1+ /hpf; RBC Urine RARE /hpf (0-2); WBC Urine 0-4 /hpf (0-5)
[2023-08-27] MEDS: cefTRIAXone 1,000 MG in sodium chloride 0.9% (plus) 50 ML 100 MG IV (17:37)
[2023-08-27] MEDS: sodium chloride 0.9% 500 ML 999 ML IV (17:39)
[2023-08-27 17:43] VITALS: BP 125/87; PULSE 75; RESP 16; O2SAT 100
[2023-08-27 18:28] VITALS: BP 133/79; PULSE 77; RESP 16; O2SAT 100
== END 2023-08-27 18:29 | disposition home or self-care (01) ==
PROVIDERS: Emergency Provider Emergency Medicine; PCP Family Medicine
DX: O21.0 Mild hyperemesis gravidarum (principal); O23.42 Unspecified infection of urinary tract in pregnancy, second trimester; N39.0 Urinary tract infection, site not specified; O26.892 Other specified pregnancy related conditions, second trimester; E86.0 Dehydration; Z3A.14 14 weeks gestation of pregnancy; O16.2 Unspecified maternal hypertension, second trimester
CPT/HCPCS: 80053; 81001; 84702; 85025; 96374; 96375; 99284; J0696; J2405; J7030; J7040

== ENCOUNTER → 2023-09-03 11:50 | Outpatient (BNVA) | payer BC, SELFPAY | PROVIDERS: PCP Family Medicine; Visit Provider Family Medicine | DX: Z34.90 Encounter for supervision of normal pregnancy, unspecified, unspecified trimester (principal) | CPT/HCPCS: 81000 ==

== ENCOUNTER → 2023-10-25 12:25 | Outpatient (BNVA) | payer BC, SELFPAY | PROVIDERS: PCP Family Medicine; Visit Provider Clinical Nurse Specialist Adult Health | DX: Z34.00 Encounter for supervision of normal first pregnancy, unspecified trimester (principal) | CPT/HCPCS: 81000; 87086 ==

== ENCOUNTER 2023-11-26 15:08 | Outpatient (CLI) | payer BC, SELFPAY ==
--- NOTE | 2023-11-26 15:15 | USR_ITS ---
PROCEDURE INFORMATION: Exam: US , Limited Exam date and time: 11/26/2023 3:13 PM Age: 38 years old Clinical indication: Screening exam; Routine US, uterus; Additional info: Chtn, large uterine fibroid - efw q4 weeks, estimated weight every 4 weeks - starting first week LABS AND CLINICAL REPORTS: Gestational age (Established): 23 w 4 d Estimated due date (Established): 03/20/2024 TECHNIQUE: Imaging protocol: Real-time ultrasound of the maternal uterus with image documentation. Exam focused on the clinical indication. COMPARISON: US OB <=14 wk fetus w transvag 08/02/2023 3:44 PM FINDINGS: Gestation: Single viable IUP in breech presentation. Placenta is located anteriorly. Amniotic fluid volume is normal. Gestational age is 23 weeks 3 days with an DIVINA of 03/21/2024. heart rate: 139 bpm BIOMETRY: Estimated weight: 581.81 g. EFW by AC, BPD, FL, HC, [place] 1985 30th percentile Biparietal diameter (BPD): 5.69 cm. EGA (BPD) is 23 w 3 d. 37.5 % percentile Head circumference (HC): 21.54 cm. EGA (HC) is 23 w 4 d. 33.9 % percentile Abdominal circumference (AC): 18.16 cm. EGA (AC) is 23 w 0 d. 24 % percentile Femur length (FL): 4.18 cm. EGA (FL) is 23 w 4 d. 38.7 % percentile HC/AC: 1.19. (Normal range: 1.05 - 1.21) FL/HC: 19.41. (Normal range: 18.99 - 20.84) FL/BPD: 73.46. (Normal range: 71 - 87) FL/AC: 23.02. (Normal range: 20 - 24) MATERNAL: Cervix: Cervical length measures 3.8 cm. US/US OB limited [id number] IMPRESSION: Unremarkable viable IUP at 23 weeks 3 days
== END 2023-11-26 15:09 | disposition home or self-care (01) ==
LOC: RAD 15:08
PROVIDERS: PCP Family Medicine; Visit Provider Family Medicine
DX: O16.2 Unspecified maternal hypertension, second trimester (principal); Z3A.23 23 weeks gestation of pregnancy; O99.891 Other specified diseases and conditions complicating pregnancy; D25.9 Leiomyoma of uterus, unspecified
CPT/HCPCS: 76815

== ENCOUNTER → 2023-12-07 15:50 | Outpatient (BNVA) | payer BC, SELFPAY | PROVIDERS: PCP Family Medicine; Visit Provider Family Medicine | DX: Z34.00 Encounter for supervision of normal first pregnancy, unspecified trimester (principal) | CPT/HCPCS: 82950 ==

== ENCOUNTER → 2023-12-13 08:00 | Outpatient (BNVA) | payer BC, SELFPAY | PROVIDERS: PCP Family Medicine; Visit Provider Family Medicine | DX: O26.90 Pregnancy related conditions, unspecified, unspecified trimester (principal); Z34.00 Encounter for supervision of normal first pregnancy, unspecified trimester | CPT/HCPCS: 82951; 82952 ==

== ENCOUNTER → 2023-12-20 08:02 | Outpatient (BNVA) | payer BC, SELFPAY | PROVIDERS: PCP Family Medicine; Visit Provider Family Medicine | DX: Z34.00 Encounter for supervision of normal first pregnancy, unspecified trimester (principal) | CPT/HCPCS: 82951; 82952 ==

== ENCOUNTER 2023-12-27 15:08 | Outpatient (CLI) | payer BC, SELFPAY ==
--- NOTE | 2023-12-27 15:17 | US_ITS ---
WS: [id number] LIMITED OBSTETRICAL ULTRASOUND HISTORY: GROWTH CHECK COMPARISON: 11/26/2023, 08/02/2023, Presentation: Cephalic. Cervix: Closed and normal length. Placenta: Anterior, no previa or abruption. Grade: 1 HEART: FHR of 148 BPM. measurements: BPD = 7.28 cm = 29w1d; 76% HC = 26.1 cm = 28w3d; 30% AC = 23.17 cm = 27w4d; 27% FL = 5.3 cm = 28w1d; 39% Amniotic fluid normal. EFW: 1148 g; 34 % AGA by ultrasound: 28w2d DIVINA by ultrasound: 03/18/2024 Appropriate growth of the fetus since the first trimester ultrasound. No growth asymmetry. US/ OB limited [id number] IMPRESSION: 1. Single intrauterine gestation of 28w2d with an DIVINA of 03/18/2024. 2. No growth asymmetry. Appropriate growth of the fetus since the first trimes ter ultrasound. 3. Estimated weight at the 34th percentile.
== END 2023-12-27 15:09 | disposition home or self-care (01) ==
PROVIDERS: PCP Family Medicine; Visit Provider Family Medicine
DX: Z34.03 Encounter for supervision of normal first pregnancy, third trimester (principal)
CPT/HCPCS: 76815

== ENCOUNTER 2024-01-25 14:24 | Outpatient (CLI) | payer BC, SELFPAY ==
--- NOTE | 2024-01-25 14:30 | USR_ITS ---
PROCEDURE INFORMATION: Exam: US , Limited Exam date and time: 01/25/2024 2:45 PM Age: 38 years old Clinical indication: Screening exam; Routine US, uterus; Additional info: Weekly bpp, starting week of January 25 x 8 us's. LABS AND CLINICAL REPORTS: Gestational age (Established): 32 w 2 d Estimated due date (Established): 03/19/2024 TECHNIQUE: Imaging protocol: Real-time ultrasound of the maternal uterus with image documentation. Exam focused on the clinical indication. Total images: 43 submitted. COMPARISON: 1. US OB limited [id number] 12/27/2023 3:24 PM 2. US OB limited [id number] 11/26/2023 3:13 PM 3. US OB <=14 wk fetus w transvag 08/02/2023 3:44 PM FINDINGS: Gestation: There is a single, living, intrauterine gestation in vertex presentation, with positive heart motion at 163 bpm. heart rate: 163 bpm Placenta: Placenta is located anteriorly, without previa or hemorrhage. Amniotic fluid (Qualitative): Amniotic fluid is qualitatively normal. Amniotic fluid index: 22.62 cm in 4 quadrants. BIOMETRY: Gestational age (AUA): Composite age 33 weeks, 2 days compared to estimated gestational age of 32 weeks, 2 days +/- 5 days based on 7 week, 1 day OB ultrasound 08/02/23 and estimated gestational age of 31 weeks, 6 days based on LMP of 06/16/23. Estimated weight: 1949 g +/- 292 g (40.3% for estimated gestational age) (EFW by AC, BPD, FL, HC, [place]lock 1985) Biparietal diameter (BPD): 8.68 cm. EGA (BPD) 35 w, 0 d (> 97%). Head circumference (HC): 30.64 cm. EGA (HC) 34 w, 1 d (62.9% ). Abdominal circumference (AC): 27.32 cm. EGA (AC) 31 w, 3 d (23.7%). Femur length (FL): 6.29 cm. EGA (FL) 32 w, 4 d. (44.5%). HC/AC: 1.12 (normal range: 0.96-1.11) FL/HC: 20.53 (normal range: 19.76-21.59) FL/BPD: 72.47 (normal range: 71-87) FL/AC: 23.02 (normal range: 20-24) BIOPHYSICAL PROFILE: Biophysical profile score (BPP): 12/29. MATERNAL: Cervix: Cervical length measures 4.4 cm. Cervical os is closed. US/US OB lmt w/ BPP wo NST IMPRESSION: 1. Single, living, intrauterine gestation in vertex presentation, with EGA of 32 weeks, 2 days +/- 5 days based on 7 week, 1 day OB ultrasound 08/02/23 and EGA of 31 weeks, 6 days based on LMP of 06/16/23. 2. Biophysical profile 12/29.
== END 2024-01-25 14:25 | disposition home or self-care (01) ==
LOC: RAD 14:25
PROVIDERS: PCP Family Medicine; Visit Provider Family Medicine
DX: Z34.00 Encounter for supervision of normal first pregnancy, unspecified trimester (principal); I10 Essential (primary) hypertension; D25.9 Leiomyoma of uterus, unspecified
CPT/HCPCS: 76815; 76819

== ENCOUNTER 2024-02-01 15:07 | Outpatient (CLI) | payer BC, SELFPAY ==
--- NOTE | 2024-02-01 15:10 | USR_ITS ---
PROCEDURE INFORMATION: Exam: US Biophysical Profile Without Non-Stress Test Exam date and time: 02/01/2024 3:30 PM Age: 38 years old Clinical indication: Screening exam; Encounter for screening of mother; Third trimester (>=28 weeks 0 days); ; Additional info: Weekly bpp TECHNIQUE: Imaging protocol: US biophysical profile without non-stress testing. COMPARISON: US OB lmt w/ BPP wo NST 01/25/2024 2:45 PM FINDINGS: Gestation: Single live intrauterine gestation. heart rate: 147 bpm. presentation and position: Vertex. Placenta: Anterior. Amniotic fluid (Qualitative): Adequate amount of amniotic fluid. Amniotic fluid index: STACY is 15.73 cm. BIOPHYSICAL PROFILE: breathing (BPP): 2 out of 2. gross body movement (BPP): 2 out of 2. tone (BPP): 2 out of 2. Amniotic fluid (BPP): 2 out of 2. MATERNAL ANATOMY: Cervix: Cervical length measures 3.2 cm. US/US OB BPP wo NST [id number] IMPRESSION: Biophysical profile score of 8/8.
== END 2024-02-01 15:08 | disposition home or self-care (01) ==
LOC: RAD 15:08
PROVIDERS: PCP Family Medicine; Visit Provider Family Medicine
DX: Z34.00 Encounter for supervision of normal first pregnancy, unspecified trimester (principal); I10 Essential (primary) hypertension; D25.9 Leiomyoma of uterus, unspecified
CPT/HCPCS: 76819

== ENCOUNTER 2024-02-08 15:00 | Outpatient (CLI) | payer BC, SELFPAY ==
--- NOTE | 2024-02-08 15:08 | USR_ITS ---
PROCEDURE INFORMATION: Exam: US Biophysical Profile Without Non-Stress Test Exam date and time: 02/08/2024 3:15 PM Age: 38 years old Clinical indication: Screening exam; Encounter for screening of mother; Third trimester (>=28 weeks 0 days); ; Additional info: Weekly bpp/supervision normal first TECHNIQUE: Imaging protocol: US biophysical profile without non-stress testing. COMPARISON: US OB BPP wo NST [id number] 02/01/2024 3:30 PM FINDINGS: Gestation: Single live intrauterine gestation. heart rate: 135 bpm. presentation and position: Cephalic. Placenta: Anterior. Amniotic fluid index: STACY is 17.13 cm. BIOPHYSICAL PROFILE: breathing (BPP): 2 /2 gross body movement (BPP): 2 /2 tone (BPP): 2 /2 Amniotic fluid (BPP): 2 /2 Biophysical profile score (BPP): 8 /8 BIOMETRY: Gestational age (AUA): 35 weeks 2 days Estimated due date (AUA): 03/12/2024 Estimated weight: 2195 g 22% Head circumference (HC): 33.30 cm 94% Biparietal diameter (BPD): 9.36 cm 97% Abdominal circumference (AC): 28.02 cm 5% Femur length (FL): 6.39 cm 13% MATERNAL ANATOMY: Cervix: Unremarkable closed cervix measuring 4.1 cm in length. US/US OB lm w fetalBPP woNST &umb IMPRESSION: 1. Single live intrauterine gestation with estimated age of 35 weeks 2 days and weight of 2195 g. 2. Imaging findings suggestive of asymmetrical growth restriction, with head measurements more than 2 weeks difference from femurs and abdominal circumference.
== END 2024-02-08 15:06 | disposition home or self-care (01) ==
PROVIDERS: PCP Family Medicine; Visit Provider Family Medicine
DX: Z34.00 Encounter for supervision of normal first pregnancy, unspecified trimester (principal)
CPT/HCPCS: 76815; 76819; 76820

== ENCOUNTER 2024-02-15 15:07 | Outpatient (CLI) | payer BC, SELFPAY ==
--- NOTE | 2024-02-15 15:16 | USR_ITS ---
PROCEDURE INFORMATION: Exam: US Biophysical Profile Without Non-Stress Test Exam date and time: 02/15/2024 3:18 PM Age: 38 years old Clinical indication: Condition or disease; Other: Gest diabetes; TECHNIQUE: Imaging protocol: US biophysical profile without non-stress testing. COMPARISON: US OB lm w fetalBPP woNST umb 02/08/2024 3:15 PM FINDINGS: Gestation: Single live intrauterine gestation. heart rate: 132 bpm. Amniotic fluid index: STACY is 16.48 cm. BIOPHYSICAL PROFILE: breathing (BPP): 2 /2 gross body movement (BPP): 2 /2 tone (BPP): 2 /2 Amniotic fluid (BPP): 2 /2 Biophysical profile score (BPP): US/US OB BPP NST [id number] IMPRESSION: Biophysical profile score 12/29.
== END 2024-02-15 15:08 | disposition home or self-care (01) ==
LOC: RAD 15:07
PROVIDERS: PCP Family Medicine; Visit Provider Family Medicine
DX: Z34.00 Encounter for supervision of normal first pregnancy, unspecified trimester (principal)
CPT/HCPCS: 76819

== ENCOUNTER 2024-02-18 06:56 | Outpatient (CLI) | payer BC, SELFPAY ==
[2024-02-18 07:03] VITALS: BP 169/95; PULSE 88
[2024-02-18 07:23] VITALS: BP 143/90; PULSE 83
[2024-02-18 07:41] VITALS: BP 143/90; PULSE 83; RESP 18
== END 2024-02-18 07:30 | disposition home or self-care (01) ==
LOC: OPOB 06:57 → OBGYN 06:58
PROVIDERS: Absent Provider Family Medicine; PCP Family Medicine; Visit Provider Family Medicine
DX: O36.8190 Decreased fetal movements, unspecified trimester, not applicable or unspecified (principal); Z3A.00 Weeks of gestation of pregnancy not specified
CPT/HCPCS: 59025; 99211

== ENCOUNTER 2024-02-22 14:14 | Outpatient (CLI) | payer BC, SELFPAY ==
--- NOTE | 2024-02-22 14:21 | US_ITS ---
WS: [id number] BIOPHYSICAL PROFILE AND LIMITED OB. HISTORY: WEEKLY BPP COMPARISON: 08/02/2023, 11/26/2023, 12/27/2023, 02/08/2024 Presentation: Vertex. Cervix: Not visualized due to late gestational age. Placenta: Anterior, no previa. Grade: 1 HEART: FHR of 145BPM. measurements: BPD = 9.6 cm = 39w2d; greater than 97th percentile HC = 34.5 cm = 40w0d; 94th percentile AC = 29.4 cm = 33w3d; less than the 3rd percentile FL = 6.7 cm = 34w2d; 7.2 percentile Amniotic fluid index is not obtained. There are several pockets of fluid that are adequate measuring up to 5.4 cm. EFW: 2534.5g; 17.6% AGA by ultrasound: 36 weeks 5 days DIVINA by ultrasound: 03/16/2024 Biophysical profile: Parameters are as follows: Breathin Movement: 2 Tone: 2 Fluid volume: 2 US/US OB lmt w/ BPP wo NST IMPRESSION: 1. Biophysical profile score: 8/8. 2. Single intrauterine gestation of 36 weeks 5 days with an EDC of 03/16/2024. The EDC remains appropriate since the first trimester. 3. There is significant growth asymmetry of the fetus. Abdominal circumference is less than the 3rd percentile and is measuring approximately 6 weeks behind t he BPD and head circumference. There is been continued progressive asymmetry be tween the abdominal circumference in the head measurements. 4. Estimated weight at the 17.6 percentile. weight percentile also continues to decrease. 5. Normal amniotic fluid. 6. Grade 1 placenta.
== END 2024-02-22 14:15 | disposition home or self-care (01) ==
PROVIDERS: PCP Family Medicine; Visit Provider Family Medicine
DX: Z34.00 Encounter for supervision of normal first pregnancy, unspecified trimester (principal)
CPT/HCPCS: 76815; 76819; 87081

== ENCOUNTER 2024-02-22 16:15 | Outpatient (CLI) | payer BC, SELFPAY ==
[2024-02-22 16:15] VITALS: BMI 39.5
--- NOTE | 2024-02-22 16:26 | USR_ITS ---
PROCEDURE INFORMATION: Exam: US Biophysical Profile Without Non-Stress Test Exam date and time: 02/22/2024 5:00 PM Age: 38 years old Clinical indication: Other: Iugr; ; Additional info: Iugr, stacy, ri index TECHNIQUE: Imaging protocol: US biophysical profile without non-stress testing. COMPARISON: US OB lmt w/ BPP wo NST 02/22/2024 2:30 PM FINDINGS: heart rate: 147 bpm Amniotic fluid index: STACY is 12.59 cm, with single deepest pocket of 5.1 cm. Other findings: Normal umbilical artery resistive index of 0.6. Unremarkable appearance of the cord. US/US OB lm w fetalBPP woNST &umb IMPRESSION: Normal amniotic fluid index and cord Doppler.
[2024-02-22 16:34] VITALS: BP 194/126; PULSE 76
[2024-02-22 16:50] VITALS: BP 149/89; PULSE 78
[2024-02-22 16:51] LABS: Basophils % 0.2 %; Eosinophils % 0.4 %; Hematocrit 36.9 % (36-47); Lymphocytes % 21.2 %; Mean Corpuscular HGB Conc 33.3 g/dL (30-55); Mean Corpuscular Hemoglobin 29.6 pg (27-33); Mean Corpuscular Volume 88.9 fl (85-98); Mean Platelet Volume 10.9 fL (7.4-10.4); Monocytes # 0.5 10^3/uL (0.2-0.9); Monocytes % 5.7 %; Neutrophils # 6.67 10^3/uL (1.8-7.7); Neutrophils % 71.5 %; Nucleated Red Blood Cells % 0 %; Platelet Count 259 10^3/cmm (157-399); Red Blood Count 4.15 10^6/uL (3.85-5.65); Red Cell Distribution Width 14.1 % (12.1-15.1); White Blood Count 9.33 10^3/uL (3.29-11.43)
[2024-02-22 16:56] LABS: Bilirubin Urine Negative (Negative); Blood Urine Negative (Negative); Glucose Urine UA Negative (Normal); Ketones Urine Negative (Negative); Leukocyte Esterase Urine 1+ (Negative); Nitrate Urine Negative (Negative); Protein Urine Negative (Negative); Specific Gravity, Urine 1.006 (1.005-1.030); Urine Appearance Clear (CLEAR); Urine Color Yellow (Yellow); Urobilinogen Urine 0.2 mg/dL (Negative); pH Urine 7.5 (5-7)
[2024-02-22 17:05] VITALS: BP 141/90; PULSE 79
[2024-02-22 17:09] LABS: Alanine Aminotransferase 17 U/L (0-33); Albumin Level 3.5 g/dL (3.5-5.2); Alkaline Phosphatase 129 U/L (35-105); Anion Gap 14.5 (5-19); Aspartate Amino Transferase 15 U/L (0-32); Blood Urea Nitrogen 6 mg/dL (6-20); Calcium 9.3 mg/dL (8.5-10.5); Carbon Dioxide 24 mmol/L (22-29); Chloride 104 mmol/L (98-107); Globulin 3.1 g/dL (1.3-4.6); Glomerular Filtration Rate 111.9 mL/min (90-130); Glucose 86 mg/dL (65-115); Osmolality Calculated 285 mOsm/kg (285-295); Potassium 3.5 mmol/L (3.5-5.1); Sodium 139 mmol/L (136-145); Total Bilirubin 0.4 mg/dL (0.15-1.2); Total Protein 6.6 g/dL (6.6-8.7)
[2024-02-22 17:16] LABS: Urine Creatinine 33 mg/dL (28-217); Urine Protein Random 11 mg/dL
[2024-02-22 17:17] LABS: UPRO/UCREAT Ratio 0.33 mg/mg CR
[2024-02-22 17:20] VITALS: BP 139/89; PULSE 78
[2024-02-22 17:30] LABS: UA Manual Slide Review YES; UA Slide Review UA Slide Review Perf
[2024-02-22 17:35] VITALS: BP 141/89; PULSE 81
[2024-02-22 17:38] LABS: Add Urine Culture? No; Add Urine Microscopic? YES; Bacteria Urine 1+ /hpf; RBC Urine 0-4 /hpf (0-2); Transitional Epi Cells Urine 0-4 /hpf; WBC Urine 0-4 /hpf (0-5)
[2024-02-22 17:50] VITALS: BP 147/88; PULSE 74
== END 2024-02-22 18:05 | disposition home or self-care (01) ==
LOC: OPOB 16:21 → OBGYN 16:22
PROVIDERS: PCP Family Medicine; Visit Provider Family Medicine
DX: O36.5990 Maternal care for other known or suspected poor fetal growth, unspecified trimester, not applicable or unspecified (principal); Z3A.00 Weeks of gestation of pregnancy not specified
CPT/HCPCS: 36415; 59025; 76815; 76819; 76820; 80053; 81001; 82570; 84156; 84550; 85025; 99211

== ENCOUNTER 2024-02-25 20:30 | Inpatient (IN) | payer BC, SELFPAY ==
[2024-02-25] VITALS (25 sets, daily range): BP systolic 131–186; BP diastolic 76–108; PULSE 67–87; RESP 16
--- NOTE | 2024-02-25 18:37 | USR_ITS ---
PROCEDURE INFORMATION: Exam: US Biophysical Profile Without Non-Stress Test Exam date and time: 02/25/2024 7:00 PM Age: 38 years old Clinical indication: Other: Sga and hypertension; TECHNIQUE: Imaging protocol: US biophysical profile without non-stress testing. COMPARISON: US OB lm w fetalBPP woNST umb 02/22/2024 5:00 PM FINDINGS: heart rate: 138 bpm Placenta: Anterior placenta. Amniotic fluid index: Maximum vertical pocket 5.6 cm. BIOPHYSICAL PROFILE: breathing (BPP): 2 out of 2. gross body movement (BPP): 2 out of 2. tone (BPP): 2 out of 2. Amniotic fluid (BPP): 2 out of 2. Vasculature: Umbilical artery resistive indices 0.49-0.61. Other findings: Vertex position. US/US OB BPP wo NST w umb IMPRESSION: Biophysical profile 12/29.
--- NOTE | 2024-02-25 20:07 | P.HP_ITS ---
Providers/Chief Complaint Primary Care Provider: Gómez Dixon MD Chief Complaint: NST FOR HYPERTENSION AND IUGR History of Present Illness Morena Machado is a 38 year old @ 36.2 wks by LMP c/with 7 wk US. Preg c/b large uterine fibroid (Fundal/left), AMA, obesity, cHTN, h/o miscarriage, on progesterone supplementation for 1st TM, COVID at 33 wks gestation, IUGR, now with cHTN with severe features and borderline 24 hour total urine protein. The patient presented to labor and delivery for a scheduled NST secondary to hypertension. She had an ultrasound showing a biophysical profile of 8 out of 8 and resistive index that was 0.49-0.61 and a systolic to diastolic ratio of 2.0- 2.6. Unfortunately, her blood pressures have been in the 160s systolic and are now currently up to 186/96 and 185/108. The patient has a headache associated with this. Her 24-hour urine protein was 294 on 02/22/2024. It had been normal at 127 at the beginning of . Due to the patient's known asymmetric IUGR in conjunction with gestational hypertension with severe features that is likely the early stages of preeclampsia, it was felt best to proceed with admission and induction of labor. I discussed the risks and benefits with the patient and her and they are in agreement to proceed. She denies any chest pains, shortness of breath, nausea, vomiting, diarrhea, constipation, fever, dysuria. Medications/Allergies Home Medications Medication Instructions Recorded Confirmed Last Taken Type ascorbic acid (vitamin C) 1,000 mg 500 mg PO BID 09/10/21 02/22/24 Unknown History tablet cholecalciferol (vitamin D3) 25 50 mcg PO DAILY 09/10/21 02/22/24 Unknown History mcg (1,000 unit) capsule prenat.vits,bjorn,[id number] 1 tab PO DAILY 09/10/21 02/22/24 Unknown History pyridoxine (vitamin B6) 100 mg 100 mg PO BID PRN Nausea #60 tabs 02/09/23 02/22/24 Unknown Rx tablet labetalol 100 mg tablet See Rx Instructions .Route .COMPLEX 08/03/23 02/22/24 Unknown History doxylamine 10 mg-pyridoxine (vit 1 tab PO DAILY #60 tabs 08/27/23 02/22/24 Unknown Rx B6) 10 mg tablet,delayed release (Diclegis) ondansetron 8 mg disintegrating 8 mg PO .q6 PRN nausea and 08/27/23 02/22/24 Unknown Rx tablet vomiting #14 tabs Allergies Allergy/AdvReac Type Severity Reaction Status Date / Time doxycycline Allergy Intermediate numbness Verified 02/25/24 18:49 in lips/face scopolamine Allergy vision loss Verified 02/25/24 18:49 [From Transderm-Scop] PFSH Acute PFSH: Medical History Chronic GERD Hypertension No pertinent past medical history neghx: dm,thyroid,dvt/pe PCP: Dr. Dixon Surgical History History of dilation and curettage 04/2023 Hx of cholecystectomy (~2005) Hx of removal of cyst (~2011) L of top of foot Hx of total knee arthroplasty L knee x2 06/2020 Family History Father Hypertension Heart disease Diabetes Mother Hypertension Diabetes Brother Hypertension Grandfather Heart disease Maternal Family/Other Diabetes Paternal Aunt Sister Thyroid disease Denies family history of Colon cancer Ovarian cancer Hypercholesteremia Breast cancer Uterine cancer Stroke Social History Smoking and tobacco/nicotine status: never used tobacco/nicotine Alcohol intake: never Substance/Drug Use: never Current occupation: [employer] Female Reproductive History: : 2 Vitals/I&O/Wt Last Vital Signs Pulse 76 02/25/24 20:03 BP 185/108 02/25/24 20:03 Physical Exam Narrative: General: Alert and oriented x3 Eyes: Pupils equal round and reactive to light and accommodation Mouth: Mucous membranes moist, pharynx non-erythematous Cardiac: Regular rate and rhythm without murmurs Lungs: Clear to auscultation bilaterally without wheezes, crackles or rhonchi Abdomen: Soft, non-tender, fundus consistent with gestational age Extremities: Trace edema in the bilateral lower extremities Neuro: Brisk reflexes in the bilateral lower extremities. A&P Assessment and plan (1) Supervision of high risk , unspecified, third trimester: heart tones are category 1 at this time. The patient is not wade. We will check her cervix and likely start Cytotec. She was closed in clinic. The patient will be started on an antihypertensive protocol to bring her blood pressures into a safer range. She is GBS negative. The patient may have IV pain meds for pain control and a laboring epidural once she gets 2 to 3 cm. If the patient's blood pressures are not improving rapidly, we may need to consider IV magnesium. We will proceed with induction of labor as above. The patient and her are in agreement with current plan of care. (2) Asymmetric intrauterine growth restriction: (3) Severe hypertension affecting in third trimester: Attestations Medical Necessity Statement*: The patient will be here for greater than 2 midnights due to routine intrapartum and management of labor and delivery. Coding Level of Care Code Acute Code for Chg Fwd Diagnoses Supervision of high risk , unspecified, third trimester O09.93 Asymmetric intrauterine growth restriction Severe hypertension affecting in third trimester O16.3
[2024-02-25] MEDS: labetalol 5 mg/mL SDV 20mL 20 MG IVP (20:26)
[2024-02-25 20:31] LABS: Bilirubin Urine Negative (Negative); Blood Urine Negative (Negative); Glucose Urine UA Negative (Normal); Ketones Urine Negative (Negative); Leukocyte Esterase Urine Negative (Negative); Nitrate Urine Negative (Negative); Protein Urine Negative (Negative); Specific Gravity, Urine 1.007 (1.005-1.030); Urine Appearance Clear (CLEAR); Urine Color Yellow (Yellow); Urobilinogen Urine 0.2 mg/dL (Negative); pH Urine 7.5 (5-7)
[2024-02-25 20:32] LABS: Basophils % 0.2 %; Eosinophils % 0.2 %; Hematocrit 36.5 % (36-47); Lymphocytes # 2.4 10^3/uL (0.8-4.8); Lymphocytes % 19.7 %; Mean Corpuscular HGB Conc 33.7 g/dL (30-55); Mean Corpuscular Hemoglobin 29.4 pg (27-33); Mean Corpuscular Volume 87.1 fl (85-98); Monocytes # 0.7 10^3/uL (0.2-0.9); Monocytes % 5.7 %; Neutrophils # 8.75 10^3/uL (1.8-7.7); Neutrophils % 73.3 %; Nucleated Red Blood Cells % 0 %; Platelet Count 263 10^3/cmm (157-399); Red Blood Count 4.19 10^6/uL (3.85-5.65); Red Cell Distribution Width 13.9 % (12.1-15.1); White Blood Count 11.93 10^3/uL (3.29-11.43)
[2024-02-25 20:36] LABS: Add Urine Microscopic? YES; Bacteria Urine None Seen /hpf; Hyaline Casts Urine 0-4 /lpf; RBC Urine 0-2 /hpf (0-2); WBC Urine 0-5 /hpf (0-5)
[2024-02-25] MEDS: miSOPROStol 100 mcg tablet 25 MCG VAGINAL (20:56)
[2024-02-25] MEDS: labetalol 200 mg Tablet 50 MG PO (21:17)
[2024-02-25 21:22] LABS: Urine Creatinine 40 mg/dL (28-217); Urine Protein Random 9 mg/dL
[2024-02-25 21:23] LABS: UPRO/UCREAT Ratio 0.23 mg/mg CR
[2024-02-25 21:24] LABS: Alanine Aminotransferase 18 U/L (0-33); Albumin Level 3.5 g/dL (3.5-5.2); Alkaline Phosphatase 126 U/L (35-105); Anion Gap 17.5 (5-19); Aspartate Amino Transferase 17 U/L (0-32); Blood Urea Nitrogen 7 mg/dL (6-20); Calcium 10.1 mg/dL (8.5-10.5); Carbon Dioxide 22 mmol/L (22-29); Chloride 102 mmol/L (98-107); Glomerular Filtration Rate 138.1 mL/min (90-130); Glucose 93 mg/dL (65-115); Osmolality Calculated 284 mOsm/kg (285-295); Potassium 3.5 mmol/L (3.5-5.1); Sodium 138 mmol/L (136-145); Total Bilirubin 0.3 mg/dL (0.15-1.2); Total Protein 6.5 g/dL (6.6-8.7); Uric Acid 4.8 mg/dL (2.4-5.7)
[2024-02-26] VITALS (141 sets, daily range): BP systolic 109–178; BP diastolic 59–111; PULSE 60–126; RESP 16; TEMP 35.9–36.8; O2SAT 91–100
[2024-02-26] MEDS: acetaminophen 325 mg Tablet 650 MG PO ×2 (00:26→11:40)
[2024-02-26] MEDS: miSOPROStol 100 mcg tablet 25 MCG VAGINAL (01:00)
[2024-02-26] MEDS: lactated ringers 1,000 ML 999 ML IV ×2 (05:51→19:34)
[2024-02-26] MEDS: dextrose 5%-lactated ringers 1,000 ML 125 ML IV ×2 (06:52→15:32)
--- NOTE | 2024-02-26 07:10 | P.ANESASSM_ITS ---
Pre-Anesthetic Assessment Height/Weight: Height 1.68 m Weight 110.677 kg Pulse Resp BP Pulse Ox O2 Del Method 87 16 150/84 99 Room Air 02/26/24 07:07 02/25/24 20:04 02/26/24 07:07 02/26/24 07:05 02/25/24 23:00 Preop Diagnosis: labor pain labor epidural Familial anesthetic complications: none Was Beta Neris taken within 24 hours: Yes (labetolol) Was Clonidine taken within 24 hours: N/A Social No alcohol and No tobacco Exam alert and oriented x 3 Airway Submandibular: within normal limits Cervical ROM: within normal limits Mallampati: Class II Dentition: full History/ROS No significant history except as noted Pulmonary None reported CV/HEM Hypertension (before and during.) None reported Hepatic None reported GI Gastroesophageal Reflux Disease Metabolic Morbid Obesity [facility] None reported Neuropsych None reported Anesthetic Plan ASA status: 3 Anesthesia: Anesthesia Evaluation and Regional (specify below) Medications/Allergies Home Medications Medication Instructions Recorded Confirmed Last Taken Type prenat.vits,bjorn,pgv-szsj-jttbl 1 tab PO DAILY 09/10/21 02/26/24 02/25/24 History labetalol 100 mg tablet See Rx Instructions .Route .COMPLEX 08/03/23 02/26/24 02/25/24 History aspirin 81 mg capsule 81 mg PO DAILY 02/26/24 02/26/24 02/25/24 History Allergies Allergy/AdvReac Type Severity Reaction Status Date / Time doxycycline Allergy Intermediate numbness Verified 02/25/24 18:49 in lips/face scopolamine Allergy vision loss Verified 02/25/24 18:49 [From Transderm-Scop] Current Medications Generic Name Dose Route Start Last Admin Trade Name Freq PRN Reason Stop Dose Admin Acetaminophen 650 mg 02/25/24 20:04 02/26/24 00:26 Acetaminophen 325 Mg Tablet PO 650 mg Q6H PRN Administration Mild pain or temp > 100.4 Dextrose/Lactated Ringer's 1,000 mls @ 125 mls/hr 02/25/24 20:15 02/26/24 06:52 Dextrose 5%-Lactated Ringers IV 125 mls/hr .Q8H KAROLINA Administration Lactated Ringer's 1,000 mls @ 999 mls/hr 02/26/24 05:26 02/26/24 05:51 Lactated Ringers IV 999 mls/hr .Q1H1M PRN Administration See label comments Labetalol HCl 20 mg 02/25/24 20:13 02/25/24 20:26 Labetalol 5 Mg/Ml Sdv 20ml IVP 20 mg PRN PRN Administration HYPERTENSION Protocol [facility] Anesthesia Medical History Chronic GERD Hypertension No pertinent past medical history neghx: dm,thyroid,dvt/pe PCP: Dr. Dixno Surgical History History of dilation and curettage 04/2023 Hx of cholecystectomy (~2005) Hx of removal of cyst (~2011) L of top of foot Hx of total knee arthroplasty L knee x2 06/2020 Family History Father Hypertension Heart disease Diabetes Mother Hypertension Diabetes Brother Hypertension Grandfather Heart disease Maternal Family/Other Diabetes Paternal Aunt Sister Thyroid disease Denies family history of Colon cancer Ovarian cancer Hypercholesteremia Breast cancer Uterine cancer Stroke Social History Smoking and tobacco/nicotine status: never used tobacco/nicotine Alcohol intake: never Substance/Drug Use: never Current occupation: [employer] Female Reproductive History : 2 Data Anesthesia 02/25/24 20:15 02/25/24 20:15 Short CBC 02/25/24 Range/Units 20:15 WBC 11.93 H (3.29-11.43) 10^3/uL Hgb 12.30 (11.27-16.99) g/dL Hct 36.5 (36-47) % MCV 87.1 (85-98) fl Plt Count 263 (157-399) 10^3/cmm Neut % (Auto) 73.3 % Neut # (Auto) 8.75 H (1.8-7.7) 10^3/uL BMP 02/25/24 20:15 Sodium 138 Potassium 3.5 Chloride 102 Carbon Dioxide 22 BUN 7 Creatinine 0.5 Glucose 93 Calcium 10.1 Liver Function 02/25/24 Range/Units 20:15 Total Bilirubin 0.3 (0.15-1.2) mg/dL AST 17 (0-32) U/L ALT 18 (0-33) U/L Alkaline Phosphatase 126 H (35-105) U/L Albumin 3.5 (3.5-5.2) g/dL Urine 02/25/24 Range/Units 20:15 Urine Color Yellow (Yellow) Urine Appearance Clear (CLEAR) Urine pH 7.5 (5-7) Ur Specific [place] 1.007 (1.005-1.030) Urine Protein Negative (Negative) Urine Glucose (UA) Negative (Normal) Urine Ketones Negative (Negative) Urine Nitrate Negative (Negative) Urine Bilirubin Negative (Negative) Ur Leukocyte Esterase Negative (Negative) Urine RBC 0-2 (0-2) /hpf Urine WBC 0-5 (0-5) /hpf Blood Bank 02/25/24 20:15 Blood Type O Positive Rho(D) Type Rh positive Antibody Screen Negative Cardiac Studies: 2 No Data to Display
--- NOTE | 2024-02-26 07:12 | ANES.PROC ---
Anesthesia Procedures Procedure/Date: 02/26/24 Epidural: Time Out Performed: Yes Consents Signed: Procedure Consent Consent: from patient, risks and benefits reviewed and patient agrees to proceed Lumbar Level: L3-L4 Epidural position: sitting Epidural procedure: sterile prep of area, 1% lidocaine to numb the area, 18 g needle, negative for paresthesia passed, neg for paresthesia, test dose given, 1.5% xylocaine 1:200k epi, placed PCEA, no systemic response, sterile dressing applied, L.U.D. no apparent complications and 0.2% Ropiavacaine @ mls/hr (13) Additional Comments: difficult placement, multiple redirect attempts. on second attempt got CSF return from epidural needle. third attempt MARY at 7.5. negative CSF/blood return upon aspiration. taped at 15 at skin.
[2024-02-26] MEDS: ROPivacaine syringe 100 MG/50 ML SYRINGE 10 MG EPIDURAL ×6 (07:14→22:05)
--- NOTE | 2024-02-26 10:29 | PM.MISC ---
Miscellaneous Note Note: Called to room due to patient discomfort. Epidural pulled back to 12cm, and 0.25% bupivacaine 6mL plus 12mcg precedex given via epidural. Negative aspiration for CSF. Will continue to monitor
[2024-02-26] MEDS: oxytocin 30 UNIT/500 ML BAG 4 UNIT IV (11:26)
[2024-02-26] MEDS: ondansetron 2 mg/ML SDV 2 mL 4 MG IVP ×2 (11:40→22:03)
[2024-02-26] MEDS: labetalol 5 mg/mL SDV 20mL 20 MG IVP (19:46)
--- NOTE | 2024-02-26 20:33 | ANES.PROC ---
Anesthesia Procedures Procedure/Date: 02/26/24 Epidural: Time Out Performed: Yes Consents Signed: Procedure Consent and NPO Consent Consent: requested by attending/covering physician, from patient, risks and benefits reviewed and patient agrees to proceed Lumbar Level: L4-L5 Epidural position: sitting Epidural procedure: sterile prep of area (betadine), 1% lidocaine to numb the area (3 mLs), neg for paresthesia, test dose given, 1.5% xylocaine 1:200k epi (3 mLs/ 2 mLs), placed PCEA, no systemic response, sterile dressing applied, L.U.D. no apparent complications and 0.2% Ropiavacaine @ mls/hr (13) Additional Comments: Patient complains of continued pain despite epidural being in place. Decision was made to replace epidural. Previous epidural removed with tip intact. MARY at L4-5 at 9cm, epidural catheter threaded to 14cm. Negative aspiration for heme/CSF. Epidural infusion started at 13 mL/hr.
[2024-02-27] VITALS (131 sets, daily range): BP systolic 104–193; BP diastolic 57–105; PULSE 58–121; TEMP 36.2–38.3; O2SAT 79–100
[2024-02-27] MEDS: ROPivacaine syringe 100 MG/50 ML SYRINGE 13 MG EPIDURAL ×7 (01:45→19:31)
[2024-02-27] MEDS: dextrose 5%-lactated ringers 1,000 ML 125 ML IV ×2 (03:12→12:05)
[2024-02-27] MEDS: ondansetron 2 mg/ML SDV 2 mL 4 MG IVP ×2 (08:24→20:23)
[2024-02-27] MEDS: oxytocin 30 UNIT/500 ML BAG 20 UNIT IV (08:46)
[2024-02-27] MEDS: acetaminophen 325 mg Tablet 650 MG PO ×2 (08:47→14:12)
[2024-02-27] MEDS: labetalol 5 mg/mL SDV 20mL 20 MG IVP (14:52)
[2024-02-27] MEDS: ampicillin 2,000 MG in sodium chloride 0.9% (plus) 50 ML 100 MG IV (17:01)
[2024-02-27] MEDS: GENTAMICIN IV (17:44)
[2024-02-27] MEDS: SODIUM CHLORIDE 0.9% IV (17:44)
--- NOTE | 2024-02-27 19:48 | P.ANES_ITS ---
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 pt feeling contractions on right side. bolus of 3cc 0.25% bupi and 100mcg fentanyl give via epidural at 1947.
--- NOTE | 2024-02-27 19:48 | ANES.PROC ---
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 pt feeling contractions on right side. bolus of 3cc 0.25% bupi and 100mcg fentanyl give via epidural at 1947.
[2024-02-27] MEDS: lactated ringers 1,000 ML 999 ML IV (21:15)
[2024-02-28] VITALS (49 sets, daily range): BP systolic 103–180; BP diastolic 56–87; PULSE 54–95; TEMP 36.1–36.6; O2SAT 92–100
[2024-02-28] MEDS: oxytocin 30 UNIT/500 ML BAG 600 UNIT IV (00:50)
[2024-02-28] MEDS: acetaminophen 325 mg Tablet 650 MG PO (00:54)
[2024-02-28] MEDS: ROPivacaine syringe 100 MG/50 ML SYRINGE 13 MG EPIDURAL (00:59)
[2024-02-28] MEDS: dextrose 5%-lactated ringers 1,000 ML 125 ML IV (01:02)
[2024-02-28] MEDS: labetalol 5 mg/mL SDV 20mL 20 MG IVP (01:10)
--- NOTE | 2024-02-28 01:23 | P.PCNOB_ITS ---
Delivery Note: Date of delivery: February 28, 2024 Pre-delivery diagnoses: 1. Intrauterine at 36.5 weeks gestation 2. Large uterine fibroid 3. Advanced maternal age 4. Obesity 5. Chronic hypertension with severe fea tures 6. Borderline 24-hour urine protein 7. Intrauterine growth restriction 8. COVID at 33 weeks gestation 9. Maternal fever with concern for intr apartum chorioamnionitis Post-delivery diagnoses: 1. Intrauterine status post v acuum-assisted vaginal delivery at 36.5 weeks gestation 2. Large uterine fibroid 3. Advanced maternal age 4. Obesity 5. Chronic hypertension with severe fea tures 6. Borderline 24-hour urine protein 7. Intrauterine growth restriction 8. COVID at 33 weeks gestation 9. Maternal fever with concern for intr apartum chorioamnionitis 10. Delivery of male weighing 5 pounds 12 ounces with Apgars of 4 and 8 Procedure: Vacuum-assisted vaginal delivery Delivering Physician: Gómez Dixon MD Estimated blood loss (mL): 250 Findings: 1. male weighing 5 pounds 12 oun ernst with Apgars of 4 and 8 2. Intact placenta with central umbilic al cord insertion site Pre-Delivery Course: Morena Machado is a 38 year old G2 now P0111 @ 36.5 wks by LMP c/with 7 wk US. Preg was c/b large uterine fibroid (Fundal/left), AMA, obesity, cHTN, h/o miscarriage, on progesterone supplementation for 1st TM, COVID at 33 wks gestation, IUGR, now with cHTN with severe features and borderline 24 hour total urine protein. The patient presented to labor and delivery for a scheduled NST secondary to hypertension. She had an ultrasound showing a biophysical profile of 8 out of 8 and resistive index that was 0.49-0.61 and a systolic to diastolic ratio of 2.0- 2.6. Unfortunately, her blood pressures have been in the 160s systolic and are now currently up to 186/96 and 185/108. The patient has a headache associated with this. Her 24-hour urine protein was 294 on 02/22/2024. It had been normal at 127 at the beginning of . Due to the patient's known asymmetric IUGR in conjunction with gestational hypertension with severe features that is likely the early stages of preeclampsia, it was felt best to proceed with admission and induction of labor. The patient was given Cytotec starting on the evening of 02/25/2024. She initially progressed well after the second dose and changed from 1 cm to 4 cm dilation. She initially had frequent contractions, however they spaced out so IV Pitocin was used to augment labor. She got to 20 units of Pitocin and was c ontracting every 2 minutes. She did not make any change with this and the infant's head was still ballotable. Finally by the morning of 02/27/2024 the head was well applied and I performed AROM at 7:55 AM on 02/27/2024. Clear fluid was noted. The patient continued to contract and initially changed up to 6 cm by approximately 2:30 in the afternoon. She began to have a fever of 101.0. She was started on IV gentamicin and ampicillin. She then did not make any further change by 6 PM. We discussed the options of proceeding with a section versus taking the approach of [id number] for another hour and return to her Pitocin up from 20 to 24 units. The patient decided to give it another hour and by 7 PM she had changed to 7 cm. She continued to change more rapidly and was complete by 1954 on 02/27/2024. Delivery: The patient began pushing at 2025 on 02/27/2024. She pushed well, however shortly into her time of pushing there was a prolonged deceleration and the Pitocin had to be turned off completely. With turning off the Pitocin, the heart tones improved and we decided it was safe to continue with pushing. We gradually increase the Pitocin back up to 16 units, however at that point there was another deceleration. Without the Pitocin, the patient's contractions were weak and every 6 to 8 minutes. When the Pitocin will get to the range of 16 to 20 units, the contractions would be adequate and every 3 to 4 minutes. Because we had to keep the overall Pitocin levels down, and she was not having adequate contractions, we discussed the option of using a vacuum to help expedite the delivery. A vacuum was placed at 2314 on 02/27/2024. With multiple pushes it was kept on through 2321. 1 pop-off was noted during this timeframe. At that time the infant's head distended to the +2 station. I decided to see if the mother would be able to push the out on her own as the heart tones had improved. She continued to push, however her contractions were weak and so there was very slow progress. She started to have decelerations as we increase the Pitocin again, so the Pitocin was turned off and a vacuum was placed again at 00:02 on 02/28/2024. With 1 contraction the descended to the position. From there the backing was removed and the mother continue to push and the delivered in the OA position at 12:09 AM on 02/28/2024. There was no nuchal cord. The 's left shoulder was anterior shoulder and it delivered with ease. The rest of the infant delivered with ease. The 's mouth and nose were bulb suction by myself and the infant was placed on the mother's chest where the nurses were waiting to care for him. The cord was clamped by myself after approximately 30 seconds and cut by the infant's father. The infant had to be taken to the warmer for further oxygen. Cord blood was obtained. The cord was then drained of blood and traction was p laced on the umbilical cord. The placenta delivered without complication at 12:15 AM on 02/28/2024. It was noted to be intact with a central vocal cord insertion site. The uterus was massaged and the patient's bleeding gradually decreased. The cervix was inspected and no lacerations were noted. The vaginal wall was inspected and a second-degree laceration was noted on the left vaginal wall. This was bleeding. The patient's epidural provided adequate anesthesia. 3-0 Vicryl was used to repair the laceration in a running fashion. The patient tolerated this well. A rectal exam was done and no sutures were noted in the rectal vault. Currently both the mother and are doing well. The is in the nursery with CPAP and supplemental oxygen. History History History 2 Term 0 0 Miscarriages/Ectopic 1 Living Children 0 Past Pregnancies Del. Date GA/Weeks Outcome Route Wt Inf Gender Labor Lgth Comp. Anesth esia Location 03/16/23 8 spontaneous 02/28/24 36 live - Vaginal 5 lb 12 oz Male 52 Low apgars [facility] Delivery Date: 03/16/23 Last Updated by: Gómez Dixon MD Spontaneous miscarriage Delivery Date: 02/28/24 Last Updated by: Gómez Dixon MD Prolonged 2nd stage of labor, vacuum delivery, cHTN with severe features, IUGR, COVID at 33 weeks Coding Level of Care Code Acute Code for Chg Fwd
[2024-02-28] MEDS: labetalol 5 mg/mL SDV 20mL 40 MG IVP (01:54)
[2024-02-28] MEDS: labetalol 5 mg/mL SDV 20mL 80 MG IVP (02:30)
[2024-02-28] MEDS: labetalol 200 mg Tablet 100 MG PO (03:02)
[2024-02-28] MEDS: benzocaine-menthol 78 gm Canister 1 SPRAY TOPICAL (09:50)
[2024-02-28] MEDS: PRENATAL VIT NO.130/IRON/FOLIC 1 EACH TABLET PO (09:50)
[2024-02-28] MEDS: lanolin oint 7 gm 1 APPLIC TOPICAL (09:50)
[2024-02-28] MEDS: ibuprofen 800 mg tablet PO ×3 (10:13→22:15)
[2024-02-28 13:13] LABS: Hematocrit 33.7 % (36-47); Mean Corpuscular HGB Conc 33.5 g/dL (30-55); Mean Corpuscular Hemoglobin 29.7 pg (27-33); Mean Corpuscular Volume 88.7 fl (85-98); Mean Platelet Volume 11.1 fL (7.4-10.4); Platelet Count 255 10^3/cmm (157-399); Red Cell Distribution Width 14.3 % (12.1-15.1)
--- NOTE | 2024-02-28 13:17 | ANES.PROC ---
Anesthesia Procedures Procedure/Date: 02/28/24 Epidural: Time Out Performed: Yes Consents Signed: Procedure Consent Consent: from patient, risks and benefits reviewed and patient agrees to proceed Lumbar Level: L2-L3 Epidural position: sitting Epidural procedure: sterile prep of area, 1% lidocaine to numb the area, 18 g needle and neg for paresthesia Additional Comments: Patient requesting blood patch for positional headache unrelieved by conservative measures after known wet tap Multiple attempts at site of first epidural without success Sajan Nilton [employer] called to assist MARY on second attemp Blood 20 cc drawn in sterile technique by nursing staff Injected into epidural space Patient tolerated procedure very well despite numerous attempts instructions to lay flat for approximately 1 hr
[2024-02-28 13:18] LABS: White Blood Count 33.19 10^3/uL (3.29-11.43)
[2024-02-28] MEDS: ampicillin 1,000 MG in sodium chloride 0.9% (plus) 50 ML 100 MG IV ×3 (14:14→23:07)
--- NOTE | 2024-02-28 17:23 | P.PN_ITS ---
Subjective 2 Subjective: Date of service 02/26/2024. The patient did well with Cytotec overnight and received 2 doses. She has changed to 4 cm dilation. She is wade regularly every 2 to 4 minutes. heart tones are category 1. Her membranes are currently intact. Her blood pressures have been elevated occasionally and she has received IV labetalol. She is also received 1 dose of labetalol 100 mg by mouth to help keep her blood pressures down. Vitals/I&O/Wt Last Vital Signs Temp 97.7 F 02/28/24 09:23 Pulse 66 02/28/24 15:09 Resp 16 02/26/24 20:44 BP 122/65 02/28/24 15:09 Pulse Ox 100 02/28/24 00:36 O2 Del Method Room Air 02/26/24 20:44 02/28/24 02/28/24 02/28/24 06:59 14:59 22:59 Intake Total 1754.167 / 4510.833 Output Total 900 / 1600 Balance 854.167 / 2910.833 Physical Exam 2 Narrative: General: Alert and oriented x3 Cardiac: Regular rate and rhythm without murmurs Lungs: Clear to auscultation bilaterally without wheezes, crackles or rhonchi Abdomen: Soft, non-tender, fundus consistent with gestational age Extremities: +1 pitting edema in the bilateral lower extremities Urinary Catheter Management: Castillo Latex: Cath Placed During This Visit: yes, but has since been removed by the nurse Reason for Continuing Indwelling Catheter: Decision to DC Catheter Urinary Catheter Date of Insertion: 02/26/24 Urinary Catheter Time of Insertion: 07:30 Date Urinary Catheter Removed: 02/27/24 Time Urinary Catheter Discontinued: 20:30 Data 02/28/24 13:00 02/25/24 20:15 A&P Assessment and plan (1) Supervision of high risk , unspecified, third trimester: The patient is making change with Cytotec. We will add IV Pitocin to augment the labor process once her contractions slowed down. We will make further adjustments depending on her course. Currently her blood pressures are relatively easy to control, so we will hold off on IV magnesium. If they are staying elevated, we may need to add this. The patient and her are in agreement with the current plan of care. (2) Severe hypertension affecting in third trimester: (3) Asymmetric intrauterine growth restriction: Attestations 2 Medical Necessity Statement*: The patient will be here for greater than 2 midnights due to continued intrapartum management of labor and delivery. Coding Level of Care Code Acute Code for Chg Fwd Diagnoses Supervision of high risk , unspecified, third trimester O09.93 Severe hypertension affecting in third trimester O16.3 Asymmetric intrauterine growth restriction
--- NOTE | 2024-02-28 17:28 | P.PN_ITS ---
Subjective 2 Subjective: Date of service 02/27/2024. The patient has been on IV Pitocin since yesterday late morning. She has been 4 to 5 cm throughout that timeframe. She has not made any significant change. The infant's head was ballotable previously so AROM was not able to be performed. The 's head is now well applied to the cervix, so AROM was performed to augment labor and clear fluid was noted. Blood pressures have been better overall since the patient received a laboring epidural. She did have to have the epidural redone as it was not working sufficiently. Currently she is comfortable. Vitals/I&O/Wt Last Vital Signs Temp 97.7 F 02/28/24 09:23 Pulse 66 02/28/24 15:09 Resp 16 02/26/24 20:44 BP 122/65 02/28/24 15:09 Pulse Ox 100 02/28/24 00:36 O2 Del Method Room Air 02/26/24 20:44 02/28/24 02/28/24 02/28/24 06:59 14:59 22:59 Intake Total 1754.167 / 4510.833 Output Total 900 / 1600 Balance 854.167 / 2910.833 Physical Exam 2 Narrative: General: Alert and oriented x3 Cardiac: Regular rate and rhythm without murmurs Lungs: Clear to auscultation bilaterally without wheezes, crackles or rhonchi Abdomen: Soft, non-tender, fundus consistent with gestational age. Uterine fibroma noted on the left/fundal portion of the uterus. Extremities: +1 pitting edema in the bilateral lower extremities Urinary Catheter Management: Castillo Latex: Cath Placed During This Visit: yes, but has since been removed by the nurse Reason for Continuing Indwelling Catheter: Decision to DC Catheter Urinary Catheter Date of Insertion: 02/26/24 Urinary Catheter Time of Insertion: 07:30 Date Urinary Catheter Removed: 02/27/24 Time Urinary Catheter Discontinued: 20:30 Data 02/28/24 13:00 02/25/24 20:15 A&P Assessment and plan (1) Supervision of high risk , unspecified, third trimester: We will continue with induction of labor. The patient's membranes are now ruptured and I suspect that this will help her to make continued change. We will continue with IV Pitocin and as of complications. Will continue to watch her blood pressures as well. (2) Hypertension: (3) Fibroid uterus: (4) Asymmetric intrauterine growth restriction: Attestations 2 Medical Necessity Statement*: Patient will be here for greater than 2 midnights due to continued intrapartum and management of labor and delivery. Coding Level of Care Code Acute Code for Chg Fwd Diagnoses Supervision of high risk , unspecified, third trimester O09.93 Hypertension I10 Fibroid uterus D25.9 Asymmetric intrauterine growth restriction
[2024-02-28] MEDS: SODIUM CHLORIDE 0.9% IV (17:44)
[2024-02-28] MEDS: GENTAMICIN IV (17:44)
[2024-02-29] VITALS (10 sets, daily range): BP systolic 127–161; BP diastolic 65–84; PULSE 62–82; RESP 16; TEMP 36.6–36.7
[2024-02-29] MEDS: ampicillin 1,000 MG in sodium chloride 0.9% (plus) 50 ML 100 MG IV ×2 (03:15→07:29)
[2024-02-29 04:56] LABS: Basophils # 0.1 10^3/uL (0.0-0.1); Basophils % 0.2 %; Eosinophils # 0.1 10^3/uL (0.0-0.8); Eosinophils % 0.2 %; Hematocrit 31.7 % (36-47); Lymphocytes # 2.5 10^3/uL (0.8-4.8); Lymphocytes % 12.3 %; Mean Corpuscular HGB Conc 33.4 g/dL (30-55); Mean Corpuscular Hemoglobin 30.3 pg (27-33); Mean Corpuscular Volume 90.6 fl (85-98); Mean Platelet Volume 11.4 fL (7.4-10.4); Monocytes # 0.7 10^3/uL (0.2-0.9); Monocytes % 3.3 %; Neutrophils # 17.24 10^3/uL (1.8-7.7); Neutrophils % 83.3 %; Nucleated Red Blood Cells % 0 %; Platelet Count 252 10^3/cmm (157-399); Red Cell Distribution Width 14.3 % (12.1-15.1); White Blood Count 20.72 10^3/uL (3.29-11.43)
--- NOTE | 2024-02-29 05:55 | PC.NURSE ---
Scheduled labatolol not given per MD orders at 1800 on 02/28/24 due to patient blood pressures within appropriate range. Orders received at 1945 on 02/28/24 to admin labetolol if systolic BP of 140 or above.
[2024-02-29] MEDS: labetalol 200 mg Tablet 100 MG PO (05:59)
[2024-02-29] MEDS: dextrose 5%-lactated ringers 1,000 ML 125 ML IV (07:35)
--- NOTE | 2024-02-29 08:52 | P.PN_ITS ---
Subjective 2 Subjective: The patient is feeling better today. Her headaches are starting to improve. She still has a headache, but it is not as bad as it was. She has been able to breast-feed. She is ambulating, voiding, passing gas and tolerating food by mouth. Her blood pressures are improving. Her dose of labetalol was held yesterday evening due to her blood pressures being below 120 systolic. Vitals/I&O/Wt Last Vital Signs Temp 97.0 F L 02/28/24 22:10 Pulse 72 02/29/24 05:42 Resp 16 02/29/24 08:00 BP 140/78 02/29/24 05:42 Pulse Ox 100 02/28/24 00:36 O2 Del Method Room Air 02/26/24 20:44 02/28/24 02/29/24 02/29/24 22:59 06:59 14:59 Intake Total 163.75 / 1163.75 100 / 1263.75 Balance 163.75 / 1163.75 100 / 1263.75 Physical Exam 2 Narrative: General: Alert and oriented x3 Cardiac: Regular rate and rhythm without murmurs Lungs: Clear to auscultation bilaterally without wheezes, crackles or rhonchi Abdomen: Soft, fundus is firm and at the umbilicus with a fibroid noted above the umbilicus on maternal left. Uterine fibroma noted on the left/fundal portion of the uterus. Extremities: +1 pitting edema in the bilateral lower extremities Urinary Catheter Management: Castillo Latex: Cath Placed During This Visit: yes, but has since been removed by the nurse Reason for Continuing Indwelling Catheter: Decision to DC Catheter Urinary Catheter Date of Insertion: 02/26/24 Urinary Catheter Time of Insertion: 07:30 Date Urinary Catheter Removed: 02/27/24 Time Urinary Catheter Discontinued: 20:30 Data 02/29/24 04:33 02/25/24 20:15 A&P Assessment and plan (1) Status post vacuum-assisted vaginal delivery: The patient is doing well overall at this time. Her blood pressures are improving. Her pain is decreasing well. Her white blood cells have improved from 33 down to 20. We will go ahead and discontinue her IV antibiotics. She had symptoms most consistent with endometritis. Continue with care and watch for signs of complications related to gestational hypertension with severe features as well as endometritis. (2) Severe hypertension affecting in third trimester: (3) Headache: Attestations 2 Medical Necessity Statement*: The patient continues to need inpatient care as she is monitored after having gestational hypertension with severe features and endometritis. Are stable cross 2 midnights. Coding Level of Care Code Acute Code for Chg Fwd Diagnoses Status post vacuum-assisted vaginal delivery Z87.59 Severe hypertension affecting in third trimester O16.3 Headache R51.9
[2024-02-29] MEDS: ibuprofen 800 mg tablet PO ×3 (09:11→20:31)
[2024-02-29] MEDS: PRENATAL VIT NO.130/IRON/FOLIC 1 EACH TABLET PO (09:11)
[2024-02-29] MEDS: docusate sodium 100 mg Capsule PO ×2 (09:12→20:31)
--- NOTE | 2024-02-29 14:00 | ANE.PACU2 ---
Inpatient post-anesthesia follow up: Airway intact: Yes Vital signs: Temperature 98.9 F Pulse Rate 83 Respiratory Rate 16 Blood Pressure 144/83 Pulse Oximetry 100 Oxygen Delivery Me thod Room Air Oxygen Flow Rate Fraction of Inspir ed Oxygen Hydration adequate: Yes Nausea and vomiting: No Pain level: 1 Mental status: Baseline Additional Comments: Patient stated head had improved from yesterday. Epidural Start/End: Epidural Start Date: 02/26/24 Epidural Start Time: 06:45 Epidural End Date: 02/28/24 Epidural End Time: 20:05
[2024-03-01 03:34] VITALS: BP 126/65; PULSE 60
[2024-03-01 10:58] VITALS: BP 144/83; PULSE 83; TEMP 37.2
[2024-03-01 11:01] VITALS: BP 144/83; PULSE 83
--- NOTE | 2024-03-13 21:19 | P.DS_ITS ---
Discharge Providers Date of Admission: 02/25/24 20:30 Date of Discharge: March 01, 2024 Attending Provider at Admission: Gómez Dixon MD Attending Provider at Discharge: Gómez Dixon MD Primary Care Provider: Gómez Dixon MD Diagnoses at Discharge Discharge Diagnosis (1) Status post vacuum-assisted vaginal delivery: Status: Acute (2) Severe hypertension affecting in third trimester: Status: Acute (3) Headache: Status: Resolved Other Information Additional DC diagnoses/information: 1. Intrauterine status post vacuum-assisted vaginal delivery at 36.5 weeks gestation 2. Large uterine fibroid 3. Advanced maternal age 4. Obesity 5. Chronic hypertension with severe features 6. Borderline 24-hour urine protein 7. Intrauterine growth restriction 8. COVID at 33 weeks gestation 9. Maternal fever with concern for intrapartum chorioamnionitis 10. Delivery of infant male weighing 5 pounds 12 ounces with Apgars of 4 and 8 Reason for Visit Reason for Visit: NST FOR HYPERTENSION AND IUGR Brief History: Morena Machado is a 38 year old G2 now P0111 @ 36.5 wks by LMP c/with 7 wk US. Preg was c/b large uterine fibroid (Fundal/left), AMA, obesity, cHTN, h/o miscarriage, on progesterone supplementation for 1st TM, COVID at 33 wks gestation, IUGR, now with cHTN with severe features and borderline 24 hour total urine protein. The patient presented to labor and delivery for a scheduled NST secondary to hypertension. Unfortunately, her blood pressures got up to 186/96 and 185/108. The patient had a headache associated with this. Her 24-hour urine protein was 294 on 02/22/2024. It had been normal at 127 at the beginning of . Due to the patient's known asymmetric IUGR in conjunction with gestational hypertension with severe features that this was likely the early stages of preeclampsia, it was felt best to proceed with admission and induction of labor. Hospital Course Hospital Course The patient was given Cytotec starting on the evening of 02/25/2024. She initially progressed well after the second dose and changed from 1 cm to 4 cm dilation. She initially had frequent contractions, however they spaced out so IV Pitocin was used to augment labor. She got to 20 units of Pitocin and was wade every 2 minutes. She did not make any change with this and the infant's head was still ballotable. Finally by the morning of 02/27/2024 the head was well applied and I performed AROM at 7:55 AM on 02/27/2024. Clear fluid was noted. The patient continued to contract and initially changed up to 6 cm by approximately 2:30 in the afternoon. She began to have a fever of 101.0. She was started on IV gentamicin and ampicillin. She then did not make any further change by 6 PM. We discussed the options of proceeding with a section versus taking the approach of [id number] for another hour and return to her Pitocin up from 20 to 24 units. The patient decided to give it another hour and by 7 PM she had changed to 7 cm. She continued to change more rapidly and was complete by 1954 on 02/27/2024. The patient had a prolonged second stage of labor. A vacuum was necessary to assist with delivery. Please see the delivery note for full details. The patient delivered via vacuum-assisted vaginal delivery at 12:09 AM on 02/28/2024. The patient had a second-degree vaginal laceration that was repaired without complication. Her bleeding was light to moderate. During the labor process, the patient's blood pressures did begin to improve and she did have to be treated with IV medications on a few occasions, however these resolved quickly and easily. The patient did not have any other severe symptoms and for this reason IV magnesium was not started. The patient was continued on IV antibiotics for 24 hours and did well with this. She did not have any further complications. At the time of discharge, her bleeding is decreasing well. Her pain is well-controlled. She is ambulating, voiding, passing gas and tolerating food by mouth. Routine discharge instructions were discussed. The patient will take labetalol 100 mg twice a day at home and watch her blood pressures closely. We will follow-up with her in clinic early next week to be sure that she is doing well. The patient and her are in agreement with discharge at this time. Physical Exam Narrative: General: Alert and oriented x3 Cardiac: Regular rate and rhythm without murmurs Lungs: Clear to auscultation bilaterally without wheezes, crackles or rhonchi Abdomen: Soft, fundus is firm and at the umbilicus with a fibroid noted above the umbilicus on maternal left. Uterine fibroma noted on the left/fundal portion of the uterus. Extremities: +1 pitting edema in the bilateral lower extremities Urinary Catheter Management: Castillo Latex: Cath Placed During This Visit: yes, but has since been removed by the nurse Reason for Continuing Indwelling Catheter: Decision to DC Catheter Urinary Catheter Date of Insertion: 02/26/24 Urinary Catheter Time of Insertion: 07:30 Date Urinary Catheter Removed: 02/27/24 Time Urinary Catheter Discontinued: 20:30 Discharge Data Studies Completed and Pending Completed Studies During Hospitalization Category Date Time Status US OB BPP wo NST w umb Stat Ultrasound 02/25/24 18:37 Completed Radiology Impressions Obstetrics Ultrasound 02/25/24 18:37 IMPRESSION: Biophysical profile 12/29. Laboratory Results WBC 20.72 10^3/uL (3.29-11.43) H 02/29/24 04:33 RBC 3.50 10^6/uL (3.85-5.65) L 02/29/24 04:33 Hgb 10.60 g/dL (11.27-16.99) L 02/29/24 04:33 Hct 31.7 % (36-47) L 02/29/24 04:33 MCV 90.6 fl (85-98) 02/29/24 04:33 MCH 30.3 pg (27-33) 02/29/24 04:33 MCHC 33.4 g/dL (30-55) 02/29/24 04:33 RDW 14.3 % (12.1-15.1) 02/29/24 04:33 Plt Count 252 10^3/cmm (157-399) 02/29/24 04:33 MPV 11.4 fL (7.4-10.4) H 02/29/24 04:33 Neut % (Auto) 83.3 % 02/29/24 04:33 Lymph % (Auto) 12.3 % 02/29/24 04:33 [place] % (Auto) 3.3 % 02/29/24 04:33 Eos % (Auto) 0.2 % 02/29/24 04:33 Baso % (Auto) 0.2 % 02/29/24 04:33 Neut # (Auto) 17.24 10^3/uL (1.8-7.7) H 02/29/24 04:33 Lymph # (Auto) 2.5 10^3/uL (0.8-4.8) 02/29/24 04:33 [place] # (Auto) 0.7 10^3/uL (0.2-0.9) 02/29/24 04:33 Eos # (Auto) 0.1 10^3/uL (0.0-0.8) 02/29/24 04:33 Baso # (Auto) 0.1 10^3/uL (0.0-0.1) 02/29/24 04:33 Nucleated RBC % (auto) 0 % 02/29/24 04:33 Nucleated RBCs # 0.0 /100WBC 02/29/24 04:33 Sodium 138 mmol/L (136-145) 02/25/24 20:15 Potassium 3.5 mmol/L (3.5-5.1) 02/25/24 20:15 Chloride 102 mmol/L (98-107) 02/25/24 20:15 Carbon Dioxide 22 mmol/L (22-29) 02/25/24 20:15 Anion Gap 17.5 (5-19) 02/25/24 20:15 BUN 7 mg/dL (6-20) 02/25/24 20:15 Creatinine 0.5 mg/dL (0.5-0.9) 02/25/24 20:15 GFR Calculation 138.1 mL/min (90-130) H 02/25/24 20:15 Glucose 93 mg/dL (65-115) 02/25/24 20:15 Calculated Osmolality 284 mOsm/kg (285-295) L 02/25/24 20:15 Uric Acid 4.8 mg/dL (2.4-5.7) 02/25/24 20:15 Calcium 10.1 mg/dL (8.5-10.5) 02/25/24 20:15 Total Bilirubin 0.3 mg/dL (0.15-1.2) 02/25/24 20:15 AST 17 U/L (0-32) 02/25/24 20:15 ALT 18 U/L (0-33) 02/25/24 20:15 Alkaline Phosphatase 126 U/L (35-105) H 02/25/24 20:15 Total Protein 6.5 g/dL (6.6-8.7) L 02/25/24 20:15 Albumin 3.5 g/dL (3.5-5.2) 02/25/24 20:15 Globulin 3.0 g/dL (1.3-4.6) 02/25/24 20:15 Urine Color Yellow (Yellow) 02/25/24 20:15 Urine Appearance Clear (CLEAR) 02/25/24 20:15 Urine pH 7.5 (5-7) 02/25/24 20:15 Ur Specific [place] 1.007 (1.005-1.030) 02/25/24 20:15 Urine Protein Negative (Negative) 02/25/24 20:15 Urine Glucose (UA) Negative (Normal) 02/25/24 20:15 Urine Ketones Negative (Negative) 02/25/24 20:15 Urine Blood Negative (Negative) 02/25/24 20:15 Urine Nitrate Negative (Negative) 02/25/24 20:15 Urine Bilirubin Negative (Negative) 02/25/24 20:15 Urine Urobilinogen 0.2 mg/dL (Negative) 02/25/24 20:15 Ur Leukocyte Esterase Negative (Negative) 02/25/24 20:15 Urine RBC 0-2 /hpf (0-2) 02/25/24 20:15 Urine WBC 0-5 /hpf (0-5) 02/25/24 20:15 Ur Squamous Epith Cells 6-10 /hpf (0-5) 02/25/24 20:15 Amorphous Sediment Not Reportable 02/25/24 20:15 Urine Bacteria None seen /hpf (NONE) 02/25/24 20:15 Hyaline Casts 0-4 /lpf H 02/25/24 20:15 U Random Total Protein 9 mg/dL 02/25/24 20:15 Urine Creatinine 40 mg/dL (28-217) 02/25/24 20:15 Protein/Creatinin Ratio 0.23 mg/mg CR 02/25/24 20:15 Blood Type O Positive 02/25/24 20:15 Rho(D) Type Rh positive 02/25/24 20:15 Antibody Screen Negative 02/25/24 20:15 Vitals Last Vital Signs Temp 98.9 F 03/01/24 10:58 Pulse 83 03/01/24 11:01 Resp 16 02/29/24 08:00 BP 144/83 03/01/24 11:01 Pulse Ox 100 02/28/24 00:36 O2 Del Method Room Air 02/26/24 20:44 Discharge Plan Discharge Patient Disposition: Home Condition: Good Prescriptions: New ibuprofen 800 mg Tablet 800 mg PO TID Qty: 60 0RF ferrous sulfate 325 mg (65 mg iron) tablet 325 mg PO DAILY Qty: 30 0RF Continued prenat.vits,bjorn,isb-fdfg-xnond Tablet 1 tab PO DAILY Discontinued labetalol 100 mg tablet See Rx Instructions .ROUTE .COMPLEX Dose Instruction: TAKE 1 TABLET BY MOUTH TWICE A DAY Rx Instructions: TAKE 1 TABLET BY MOUTH ONCE A DAY aspirin 81 mg Capsule 81 mg PO DAILY No Action labetalol 100 mg tablet 100 mg PO BID Qty: 60 3RF Rx Instructions: TAKE 1 TABLET BY MOUTH ONCE A DAY Discharge Orders: Discharge Order (Routine); Ordered 03/01/24 Ordered By: Gómez Dixon Referrals: Gómez Dixon MD [Primary Care Provider] - 03/13/24 12:50 pm Discharge Diet: Regular Discharge Activity: Limit activity as instructed Patient Instructions: Depression (DC), Opioid Safety (DC), Preeclampsia and Eclampsia After Delivery (GEN), Hemorrhage (DC), OB Discharge Report, OB Food/Drug Interaction Guide, Opioid Safety, OB [facility], OB Vaginal Deliveries, Abnormal Bleeding Activity Restrictions/Additional Instructions: Keep overall activity levels low for the next week and then gradually increase as long as your blood pressure is staying under good control. Nothing per vagina for 6 weeks. Discharge Attestations Time Spent in Discharge Care*: greater than 30 min Quality Metrics Clinical Quality Measures [ No reported AMI, CVA or VTE this stay] Coding Level of Care Code Acute Code for Chg Fwd Diagnoses Status post vacuum-assisted vaginal delivery Z87.59 Severe hypertension affecting in third trimester O16.3 Headache R51.9
== END 2024-03-01 10:58 | disposition home or self-care (01) | DRG 805 ==
LOC: OPOB 02-26 02:20 → OBGYN 02-26 02:20
PROVIDERS: Admitting Provider Family Medicine; PCP Family Medicine; Visit Provider Family Medicine
DX: O14.94 Unspecified pre-eclampsia, complicating childbirth (principal); O41.1230 Chorioamnionitis, third trimester, not applicable or unspecified; Z37.0 Single live birth; O71.4 Obstetric high vaginal laceration alone; O60.14X0 Preterm labor third trimester with preterm delivery third trimester, not applicable or unspecified; O86.12 Endometritis following delivery; O76 Abnormality in fetal heart rate and rhythm complicating labor and delivery; O36.5930 Maternal care for other known or suspected poor fetal growth, third trimester, not applicable or unspecified; O34.13 Maternal care for benign tumor of corpus uteri, third trimester; O99.214 Obesity complicating childbirth; Z3A.36 36 weeks gestation of pregnancy; D25.9 Leiomyoma of uterus, unspecified
CPT/HCPCS: 36415; 51702; 59025; 59409; 76819; 76820; 80053; 81001; 82570; 84156; 84550; 85025; 85027; 86850; 86900; 96374; 96376; 98960; 99211; J0290; J1580; J2405; J2590; J2795; J3010; J3490; J7120; J7121

== ENCOUNTER → 2024-03-13 14:37 | Outpatient (BNVA) | payer BC, SELFPAY | PROVIDERS: PCP Family Medicine; Visit Provider Family Medicine | DX: R30.0 Dysuria (principal); Z39.2 Encounter for routine postpartum follow-up | CPT/HCPCS: 81000; 87086 ==

== ENCOUNTER → 2024-07-11 10:34 | Outpatient (BNVA) | payer BC, SELFPAY | PROVIDERS: PCP Family Medicine; Visit Provider Family Medicine | DX: Z51.81 Encounter for therapeutic drug level monitoring (principal) | CPT/HCPCS: 80053; 85025 ==

== ENCOUNTER → 2024-11-30 13:06 | Outpatient (BNVA) | payer BC, SELFPAY | PROVIDERS: PCP Family Medicine; Visit Provider Family Medicine | DX: R30.0 Dysuria (principal); N39.0 Urinary tract infection, site not specified | CPT/HCPCS: 81000; 87086 ==

== ENCOUNTER 2024-12-21 17:25 | Outpatient (CLI) | payer BC, SELFPAY ==
[2024-12-21 17:44] LABS: Hematocrit 38.3 % (36-47); Hemoglobin 12.60 g/dL (11.27-16.99); Mean Corpuscular HGB Conc 32.9 g/dL (30-55); Mean Corpuscular Hemoglobin 29.0 pg (27-33); Mean Corpuscular Volume 88.0 fl (85-98); Nucleated Red Blood Cells % 0 %; Platelet Count 233 10^3/cmm (157-399); Red Blood Count 4.35 10^6/uL (3.85-5.65); White Blood Count 5.71 10^3/uL (3.29-11.43)
[2024-12-21 18:13] LABS: Alanine Aminotransferase 15 U/L (0-33); Albumin Level 4.0 g/dL (3.5-5.2); Alkaline Phosphatase 80 U/L (35-105); Anion Gap 16.1 (5-19); Aspartate Amino Transferase 19 U/L (0-32); Blood Urea Nitrogen 11 mg/dL (6-20); Calcium 9.1 mg/dL (8.5-10.5); Carbon Dioxide 24 mmol/L (22-29); Chloride 103 mmol/L (98-107); Globulin 2.6 g/dL (1.3-4.6); Glucose 87 mg/dL (65-115); Iron 40 ug/dL (37-145); Osmolality Calculated 289 mOsm/kg (285-295); Potassium 3.1 mmol/L (3.5-5.1); Sodium 140 mmol/L (136-145); Total Protein 6.6 g/dL (6.6-8.7)
[2024-12-21 18:24] LABS: Vitamin B12 657 pg/mL (232-1245)
== END 2024-12-21 17:26 | disposition home or self-care (01) ==
PROVIDERS: PCP Family Medicine; Visit Provider Family Medicine
DX: Z51.81 Encounter for therapeutic drug level monitoring (principal); Z90.3 Acquired absence of stomach [part of]; D64.9 Anemia, unspecified; E53.8 Deficiency of other specified B group vitamins; E55.9 Vitamin D deficiency, unspecified
CPT/HCPCS: 36415; 80053; 82306; 82525; 82607; 83540; 84446; 84590; 84597; 84630; 85025

== ENCOUNTER 2025-02-08 16:47 | Outpatient (CLI) | payer BC, SELFPAY ==
[2025-02-08 17:54] LABS: Anion Gap 15.7 (5-19); Blood Urea Nitrogen 18 mg/dL (6-20); Calcium 9.8 mg/dL (8.5-10.5); Carbon Dioxide 23 mmol/L (22-29); Chloride 104 mmol/L (98-107); Glucose 95 mg/dL (65-115); Osmolality Calculated 290 mOsm/kg (285-295); Potassium 3.7 mmol/L (3.5-5.1); Sodium 139 mmol/L (136-145)
== END 2025-02-08 16:48 | disposition home or self-care (01) ==
LOC: LAB 16:48
PROVIDERS: PCP Family Medicine; Visit Provider Family Medicine
DX: E87.6 Hypokalemia (principal); Z90.3 Acquired absence of stomach [part of]
CPT/HCPCS: 36415; 80048; 82525; 84446; 84597; 84630